=== PATIENT | male | born 1985 | race Caucasian/White ===

== ENCOUNTER 2023-02-27 14:55 | Emergency (ER) | payer SELFPAY ==
[2023-02-27 15:02] VITALS: BP 131/84; PULSE 72; RESP 16; TEMP 37.1; O2SAT 100; BMI 29.8
--- NOTE | 2023-02-27 15:10 | XR_ITS ---
The [address] [address] Patient Name: JACKI ROCHA MRN: [id number] date: 1985 Sex: M Assigned Patient Location: ER Current Patient Location: ER Accession/Order Number: [id number] Exam Date: 02/27/2023 15:15 Report Date: 02/27/2023 15:39 At the request of: GUANACO TRUJILLO Procedure: XR lumbar spine 2-3V EXAM: XR lumbar spine 2-3V HISTORY: fall COMPARISON: None TECHNIQUE: AP and lateral views of the lumbar spine were obtained. FINDINGS: Vertebral body heights are grossly well-maintained. Mild disc space narrowing at L5-S1. Minimal anterior spurring in the lower thoracic levels as well as at L3-4 and L4-5. Facet joints appear grossly unremarkable. No obvious spondylolysis or spondylolisthesis. No definite acute fracture or dislocation. Slight convexity of the thoracolumbar junction to the right. XR/XR lumbar spine 2-3V IMPRESSION: Lumbar spine study fails to demonstrate definite acute fracture or dislocation. Follow-up as needed. Electronically authenticated by: DIANA SCHNEIDER Date: 02/27/2023 15:39
[2023-02-27] MEDS: KETOROLAC TROMETHAMINE 60 MG/2 ML VIAL IM (15:23)
--- NOTE | 2023-02-27 15:23 | ED.BACK1 ---
Documented by User: Cori Dias 02/27/23 15:51 HPI - Back Pain/Injury General Chief Complaint: Back Pain/Injury Stated Complaint: BACK PAIN Time Seen by Provider: 02/27/23 15:10 Source: patient Mode of arrival: walk-in Limitations: no limitations History of Present Illness HPI Narrative: 37-year-old male presents her with chief complaint of right lower lumbar pain. Patient reports slipping and falling while moving a with burning stove last evening. As the day progresses today he has increased lower lumbar pain. Some difficulty standing straight. He states she has thrown his back in the past. He is able to stand and ambulate. Denies any numbness, tingling, loss of bowel or bladder function. Related Data Home Medications Medication Instructions Recorded Confirmed No Known Home Medications 02/27/23 02/27/23 Previous Rx's Medication Instructions Recorded ibuprofen 800 mg tablet 800 mg PO Q8H PRN pain #20 tabs 02/27/23 methocarbamol 500 mg tablet 500 mg PO Q8H PRN muscle spsm #14 02/27/23 tabs prednisone 50 mg tablet 50 mg PO DAILY 5 days #5 tabs 02/27/23 Allergies Allergy/AdvReac Type Severity Reaction Status Date / Time No Known Drug Allergies Allergy Verified 02/27/23 15:08 Review of Systems ROS Narrative All Systems are negative except as noted/marked. PFSH PFSH Social History Smoking status: Current every day smoker Exam Narrative Exam Narrative: Nurses note and vital signs reviewed and patient is not hypoxic. General: The patient appears well and in no apparent distress. Patient is resting comfortably on cart. Skin: Warm, dry, no pallor noted. There is no rash noted. Head: Normocephalic, atraumatic Eye: Normal conjunctiva, no drainage, EOMI. PERRL Back: Right lower lumbar tenderness L4-L5 lateral T-spine, no masses palpated, no step-offs, No bruising or ecchymosis,no CVA tenderness bilaterally to percussion. GI: Normal bowel sounds, no tenderness to palpation, no masses appreciated. No rebound, guarding, or rigidity noted. Musculoskeletal: The patient has no evidence of calf tenderness, no pitting edema, symmetrical pulses noted bilaterally Neurological: A&O x4, normal speech Psychiatric: Cooperative Constitutional Vital Signs, click to edit/add: Last Vital Signs Temp 98.7 F 02/27/23 15:02 Pulse 72 02/27/23 15:02 Resp 16 02/27/23 15:02 BP 131/84 02/27/23 15:02 Pulse Ox 100 02/27/23 15:02 O2 Del Method Room Air 02/27/23 15:02 Course Vital Signs Vital signs: Vital Signs Temperature 98.7 F 02/27/23 15:02 Pulse Rate 72 02/27/23 15:02 Respiratory Rate 16 02/27/23 15:02 Blood Pressure 131/84 02/27/23 15:02 Pulse Oximetry 100 02/27/23 15:02 Oxygen Delivery Method Room Air 02/27/23 15:02 Temperature 98.7 F 02/27/23 15:02 Pulse Rate 72 02/27/23 15:02 Respiratory Rate 16 02/27/23 15:02 Blood Pressure 131/84 02/27/23 15:02 Pulse Oximetry 100 02/27/23 15:02 Oxygen Delivery Method Room Air 02/27/23 15:02 MDM - Back Pain/Injury MDM Narrative Medical decision making narrative: 37-year-old male presents here with a chief complaint of right lower lumbar pain. He has pain through L3-L4-L5 region. He states he slipped last night while moving a wood-burning stove has had progressive increase of pain today. X-rays performed show no acute deformity or dislocations. Patient medicated here with Toradol and muscle relaxant. He'll be discharged home with prescription for anti-inflammatory, steroid and muscle relaxant. He will follow-up primary care physician. Patient also requested a work note given a work note for the rest of the day today. Differential Diagnosis Differential diagnosis: Likely lumbar radiculopathy, sciatica and strain of lumbar region Medical Records Attestation: I reviewed the patient's medical records. Medical records narrative: EXAM: XR lumbar spine 2-3V HISTORY: fall COMPARISON: None TECHNIQUE: AP and lateral views of the lumbar spine were obtained. FINDINGS: Vertebral body heights are grossly well-maintained. Mild disc space narrowing at L5-S1. Minimal anterior spurring in the lower thoracic levels as well as at L3-4 and L4-5. Facet joints appear grossly unremarkable. No obvious spondylolysis or spondylolisthesis. No definite acute fracture or dislocation. Slight convexity of the thoracolumbar junction to the right. IMPRESSION: Lumbar spine study fails to demonstrate definite acute fracture or dislocation. Follow-up as needed. Electronically authenticated by: DIANA SCHNEIDER Date: 02/27/2023 15:39 Imaging Data lumbar: Radiologist's impression: ITS Impressions Lumbar Spine X-Ray 02/27/23 15:10 IMPRESSION: Lumbar spine study fails to demonstrate definite acute fracture or dislocation. Follow-up as needed. Electronically authenticated by: DIANA SCHNEIDER Date: 02/27/2023 15:39 Discharge Plan Discharge Chief Complaint: Back Pain/Injury Clinical Impression: Strain of lumbar region Patient Disposition: Home, Self-Care Condition: Good Mode of Transportation: Private Vehicle Prescriptions / Home Meds: New ibuprofen 800 mg tablet 800 mg PO Q8H PRN (Reason: pain) Qty: 20 0RF prednisone 50 mg tablet 50 mg PO DAILY 5 Days Qty: 5 0RF methocarbamol 500 mg tablet 500 mg PO Q8H PRN (Reason: muscle spsm) Qty: 14 0RF No Action No Known Home Medications Instructions: Muscle Strain (DC), Back Pain (ED), P.R.I.C.E. Treatment (ED) Stand Alone Forms: Portal Instructions Referrals: Physician,Non-Staff, [Primary Care Provider] - 1 week Discharge Date/Time: 02/27/23 16:10 Documented by User: Jason Delgado MD 02/27/23 18:51 HPI - Back Pain/Injury General Chief Complaint: Back Pain/Injury Stated Complaint: BACK PAIN Time Seen by Provider: 02/27/23 15:10 Related Data Home Medications Medication Instructions Recorded Confirmed No Known Home Medications 02/27/23 02/27/23 Previous Rx's Medication Instructions Recorded ibuprofen 800 mg tablet 800 mg PO Q8H PRN pain #20 tabs 02/27/23 methocarbamol 500 mg tablet 500 mg PO Q8H PRN muscle spsm #14 02/27/23 tabs prednisone 50 mg tablet 50 mg PO DAILY 5 days #5 tabs 02/27/23 Allergies Allergy/AdvReac Type Severity Reaction Status Date / Time No Known Drug Allergies Allergy Verified 02/27/23 15:08 PFSH PFS Social History Smoking status: Current every day smoker Exam Constitutional Vital Signs, click to edit/add: Last Vital Signs Temp 98.7 F 02/27/23 15:02 Pulse 72 02/27/23 15:02 Resp 16 02/27/23 15:02 BP 131/84 02/27/23 15:02 Pulse Ox 100 02/27/23 15:02 O2 Del Method Room Air 02/27/23 15:02 Course Vital Signs Vital signs: Vital Signs Temperature 98.7 F 02/27/23 15:02 Pulse Rate 72 02/27/23 15:02 Respiratory Rate 16 02/27/23 15:02 Blood Pressure 131/84 02/27/23 15:02 Pulse Oximetry 100 02/27/23 15:02 Oxygen Delivery Method Room Air 02/27/23 15:02 Temperature 98.7 F 02/27/23 15:02 Pulse Rate 72 02/27/23 15:02 Respiratory Rate 16 02/27/23 15:02 Blood Pressure 131/84 02/27/23 15:02 Pulse Oximetry 100 02/27/23 15:02 Oxygen Delivery Method Room Air 02/27/23 15:02 MDM - Back Pain/Injury MDM Narrative Medical decision making narrative: 37-year-old male presents here with a chief complaint of right lower lumbar pain. He has pain through L3-L4-L5 region. He states he slipped last night while moving a wood-burning stove has had progressive increase of pain today. X-rays performed show no acute deformity or dislocations. Patient medicated here with Toradol and muscle relaxant. He'll be discharged home with prescription for anti-inflammatory, steroid and muscle relaxant. He will follow-up primary care physician. Patient also requested a work note given a work note for the rest of the day today. I, Dr Delgado, have reviewed the above progress note and course of action in the ER; agree with the above. I have gone over history and physical, and discussed disposition and treatment plan with the patient. Imaging Data lumbar: Radiologist's impression: ITS Impressions Lumbar Spine X-Ray 02/27/23 15:10 IMPRESSION: Lumbar spine study fails to demonstrate definite acute fracture or dislocation. Follow-up as needed. Electronically authenticated by: DIANA SCHNEIDER Date: 02/27/2023 15:39 Discharge Plan Discharge Chief Complaint: Back Pain/Injury Clinical Impression: Strain of lumbar region Patient Disposition: Home, Self-Care Condition: Good Mode of Transportation: Private Vehicle Prescriptions / Home Meds: New ibuprofen 800 mg tablet 800 mg PO Q8H PRN (Reason: pain) Qty: 20 0RF prednisone 50 mg tablet 50 mg PO DAILY 5 Days Qty: 5 0RF methocarbamol 500 mg tablet 500 mg PO Q8H PRN (Reason: muscle spsm) Qty: 14 0RF No Action No Known Home Medications Instructions: Muscle Strain (DC), Back Pain (ED), P.R.I.C.E. Treatment (ED) Stand Alone Forms: Portal Instructions Referrals: Physician,Non-Staff, MD [Primary Care Provider] - 1 week Discharge Date/Time: 02/27/23 16:10
[2023-02-27] MEDS: ORPHENADRINE 60 MG/ 2 ML VIAL IM (15:24)
== END 2023-02-27 16:10 | disposition home or self-care (01) ==
PROVIDERS: Emergency Provider Emergency Medicine
DX: S39.012A Strain of muscle, fascia and tendon of lower back, initial encounter (principal); F17.210 Nicotine dependence, cigarettes, uncomplicated; W01.0XXA Fall on same level from slipping, tripping and stumbling without subsequent striking against object, initial encounter
CPT/HCPCS: 72100; 96372; 99284; J1885; J2360

== ENCOUNTER 2023-05-07 08:45 | Emergency (ER) | payer SELFPAY ==
[2023-05-07 08:45] VITALS: BP 144/92; PULSE 100; RESP 18; TEMP 36.9; O2SAT 98; BMI 29.8
--- NOTE | 2023-05-07 08:59 | XR_ITS ---
The [address] [address] Patient Name: JACKI ROCHA MRN: [id number] date: 1985 Sex: M Assigned Patient Location: ER Current Patient Location: ER Accession/Order Number: [id number] Exam Date: 05/07/2023 09:28 Report Date: 05/07/2023 10:06 At the request of: KAYCE GRAF Procedure: XR lumbar spine 2-3V EXAM: XR lumbar spine 2-3V HISTORY: Right-sided lower back pain; technologist notes state back pain after moving a heavy object. COMPARISON: Lumbar spine series dated 02/27/2023. TECHNIQUE: AP, lateral and coned-down lateral views of the lumbar spine performed. FINDINGS: The bony alignment and mineralization are normal. The vertebral body heights are normal. There is no fracture. There is a small endplate spur at L3-4 with preservation of the disc space height. The disc spaces and facet joints are otherwise unremarkable. The pedicles are intact. The sacrum and bilateral sacral joints are unremarkable. XR/XR lumbar spine 2-3V IMPRESSION: There is no acute process. Electronically authenticated by: GERMÁN WELLS Date: 05/07/2023 10:06
--- OUTSIDE RECORDS SUMMARY | 2023-05-07 09:03 | XMS_ITS | CCD ---
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 Name Role Phone MARCO A LOPEZ Admitting Unavailable MARCO A LOPEZ Attending Unavailable MISC, DOCTOR Primary Care Unavailable CARLOS DIAS V Consulting Unavailable GIFTY AVILA Consulting Unavailable MISC, DOCTOR Primary Care Unavailable STRUS, LIZBETH Admitting Unavailable STRUS, LIZBETH Attending Unavailable GREMADONNA, GIFTY Consulting Unavailable Problems Active Problems Problem Classification Problem Date Documented Da te Episodic/Chronic External cause codes: Natural/environment (1 source) Other and unspecified overexertion or strenuous movements or postures, initial encounter; Translations: [OTH AND UNS OVREXRT/STRN MVMT/POS INT] Onset: 12-04-2017 Residual codes; unclassified (4 sources) Procedure and treatment not carried out due to patient leaving prior to being seen by health care provider; Translations: [PROC AND TX NOT CARRIED OUT PT LEAVE] Onset: 03-01-2018 Episodic Substance-related disorders (1 source) Nicotine dependence, cigarettes, uncomplicated; Translations: [NICOTINE DEPEND CIGARETTES UNCOMP] Onset: 12-04-2017 Chronic Past or Other Problems Problem Classification Problem Date Documented Da te Episodic/Chronic Joint disorders and dislocations; trauma-related (1 source) Anterior dislocation of right humerus, initial encounter; Translations: [ANT DISLOCATION RT HUMERUS INITIAL] Onset: 12-04-2017 Episodic Other non-traumatic joint disorders (3 sources) Pain in right shoulder; Translations: [PAIN IN RIGHT SHOULDER] Onset: 12-02-2017 Episodic Results Test Name Value Interpretation Reference Range Facil ity Shelter Documentson 05-24-2021 Shelter Documents [id number]# 1.00CD:127 Normal Ly [facility] Coding Summary.on 07-24-2020 Coding Summary. CD:[id number] G h0bWw+PGhlYWQ+OV0XFDY qX09niENnfS5RW4nAOZ9H WIJBUCYUAR2WOG3nhZD7H OaaZ3TwjjLc RnwymFNzQN81KBt6HPQ5z SznDKdwkE4lkAHlQ4s2Xr OhYD22xV90ZWqrURPjObE 3LjZpbjsgbWFy L2umIiCguUOtHms+PHRhY mxlIHdpZHRoPScxMDAlJy EsvTtuVU8yLy9gEYErZDI vbGxhcHNlOiBj f9ejJACfCTjaEI9smVspC 5IthBW5BYSnn9s2Vg56uV I+KQRqMFI8xWoaDKxaa41 8UfPky3xsRMI3 bGQxGVkyYSH3N68uv5V4U WOzODTlSFF1gCB6tN1brR jofxfsC9XhbNSfNqS1GNU 7tASmzV2juQak uvqxqX6jVpp+M73RTP2MZ IYZYG4AOze5U7CkYacjzK I+DV44KUDtAV31vMFuqDR lt1octGx2IhRf NYXkVXN4iEhpCMidk4QqL USiL21isVHrz2N7CGGdpV osqDJxRrLbiPL5qM8eRVv geunfp3isuytc Itzde0jumj19sL32K18jD PynDRMbCLF0LDVzGVZmyY nxrw1myQ7lXt2+UQcma7b lf7btmBd1PyLh UHLoxuLcpBecKAT8c8UqT c24F4XnzNiqq5HdLxz3yl 23jUFxw5S6qPF7BZppRET giQ5gTHrdWiT7 LPZuEjWhpS64zFEaECkgM e9zgVvthRamZO2jKHKhff awTVOivD3cEGJwvSZdoLq eAZ4jACApzmzy c272TcOtTEL7AKOzbEAuG 5CjaJ9wHvYcUIMvIFYiE1 QcjGGjHWwsQ639LZroRlV 5VEUakxWtR6Zl SASiqWiuVbX0r1W6Ze0Tq 2PycwvhWXF1LZumNJQ8Ik Z4HrYqFjC6J9IwSnr4RGS fxTdrUX7bW2Vt QGKlahgjsuzlkXH2KUXuX EOszC41dKNqZJheEk8qc8 E0b502RIAvPGLhqC57Id3 udDogMTBwdCBU oQ3joqtor8qzzotmDrUhZ INoGGx6NSj8JKRrnClsCr CoQYY4ZeG0YRQ3mUPbyI8 veAvmtjkmlO0s Oyc+X29jzC1iABH6CPW7v ggkVJQwflEeQB64KO67Y2 RyPjwvdGFibGU+PGRpdiB zwGooJJ3kBuSb l5oim9MtVIevJ5MtHOGcB JwxQdd5IKZoGWG3lVP7tB 6bTYNpUHauc7K9xNI6E1M wtmVcvc3pp9us GLPfDBsfF87eyIAyf7G1P FZadSS1EQTyzMqdYdAqsR 93Oyc+ORMvzAris2HkJqz pz2dtw7hflMe6 XtYlIJXpqmUafIugPOU5w 1OpFi71Q01cKXirAJZhSU WwFXEkOAVuuAukan5okN2 wIi8+PGNvbCB3 lMY7hP2pALNoTcJ4TBfeA 259SeIjjRKwJcmrn4jea8 enuIo3AyOtWNEdiaWmaDs kXCF3z1SaUw56 T82jAGbfOLCyYPUjGHAaK YKysGqcsq0noH8nVn6+PC 3ih1toiq93cZ38nPL+PHR yXSC4uJmxQZpq JWKakZ4rTRvbXhE3TDCdQ iZyiX94lLSjVLauHf1ljX dulAlcXG7aCOKohiiku31 2NbQyn1iwSDMa xQQsPMmwGCW2G14jt3Z8P OYeADHdIDC9tWE2hQ2alX lnbjogbGVmdDsgdmVydGl yVQbpYFwuO314 IHRvcDsnPlBhdGllbnQgT tDmXTw1R7BvQsy5LKZlzO bkOG5usJFeHRtcHm2mqGb jjZtgCW0hIDEk acowf611MwSix0bsFAQyx OFuTElfXKD7T70ql9P8NY OlYADrPVL9lPO0pR5byBj nbjogbGVmdDsg thLfrOxfNJdwUXweP324E HRvcDsnPkJpcnRoIERhdG Y2UH70CE07tDBmp5F1dHQ 0T2MyQBTtlhrs tdqydCP0SPTbEUAibU85C p7apBszBa9mBWQsVKG6KK ZfcXDrI0KgbL1kJaFsDYF iQZZmT1IecNLn YPpqF845UNklEwP2OWVpn yLpN2FwQUXroZwmVlA9m1 M5Mx9WM2O7JP92NC52aKY aa0S1kSS1C7Mf WUZqjccsjfbhlMG1BBAlR SZpcG63Pg1qjXpuWp1rDM CxYAF7UXYptJUlF0CgyI8 yOiAjMDAwMDAw B9TedPSyPYztV845XUqjQ mD3NSZwcfPeO2SiFEZnlK laDjB7k7S9Vo8FZJj7IU5 7RB86gELmt0V8 fPQ2A1MpIUMxbmkiqszat VM8IPHrHPGdyE59Yo2uhX egCv6kOOMdYJQ0EYTdpOE sS7SvcL2yImNy JXXgKIRcK6EqgCGbHDuzM 208KCybLfW3WZQwnlIwE4 NiABHsfFxwAzT6d2M7Vg1 NWAVvEV87KOT0 gRH9UW50XH09S7ToUdqvp GFibGU+PHRhYmxlIHdpZH RoPScxMDAlJyBzdHlsZT0 lYb0bWTTfETMq wXaazPRgEqVsl1qsXGJkF AfrJO9yoRaoB2FnsAU6MX Pba0s0My66C00zL2SwiIM +IXLfgYP4jZC6 jO3vKmMsWpB6NVnbK316T lBquPFgKwrco4etb3cbbV s6IhJ8ZWLqhqXuhKdfECF 8h3ZpNx18U82d IHdpZHRoPSIxNSUiIHZhb Mmvca7duL5tSb7+PGNvbC G3pNZ2mH3eNxVjQaK0BYk qD879RvYnqFQs Iyzkl9vfd0suhUz3SuNcH UYrxyTqtKsjNAZ2g2ZjEh 01J3EhxUnmv3YpIga6kv9 2lORqx1Z1xUB9 B5EjNETbekgyxTXpxBxcU N4sMYUomhzkEXAgvT0oNC RbW7w6EgHcRfR2NQowF3H wkqQ2IZCuuJTt KAqhOCN1T77bg9G8BBGgI MSuDRZ4mHO4xV2xyUzpuv ogbGVmdDsgdmVydGljYWw wIYqpE656WBKr zXiiTURqkJ6yAZVlpCXcq IdwRN4uOSCbpvwgJtFCQn FXLctxPN2UOVIDKEphKka vdGQ+PHRkIHN0 vPbpEUisFVXnqT8rTKKnR 5n8UuBqYdG1TWkhQ3FxRU LsdptfAs34hU9aOvSsHwQ 8SUkrF9PlieY5 RJYruIAtQSfeZKH4W63yl 1M4EJTqKZSaWSW2cMZ2gG 1hbGlnbjogbGVmdDsgdmV ydGljYWwtYWxp V385LZJddKihZwTsBqJuP nT9BIi5Q4JyQcc1HOAygT wnFA7doNRbMNcaUl8ykTm noJomQA2aPOCz ofqcJYRerT6vGSRiuBWfc UqbNM0fKLRavdptw681Zf GyKCV1NYTozINzI1DadZ5 yOiAjMDAwMDAw A6MjdHLtCAlxF728IMecI iF9QCDxhsDfX8DlQNBapZ ysCcN1u7T4Nc8cQHXDOOS yczwvdGQ+PHRk NIP4aBroTWtlWMVbdO6iY WXyL2y7ZyScRuM2ZUvwL8 EuROQffavjZi98xP7qBuP qHjZ4VTsqX6Qt mwX8JCLpxCWxUKbhKQC8Z 35lf6W6AYMnNHRxYIJ0wA W1hD3qnIpnxnsawHZmoMi gdmVydGljYWwt JWpjW456MKOaoNzaWp5mz CW8E2XgYpr8IZCcvQsfSC 9prKVsBNihTq6rmVuygUx jWK2xDBAshrhe QQDpvZ5bGVOlmMJpsPuvE I8uTYZvkyalc128BvAjMT O4ETZuuVNpR9TrgY2xFwB fMZAvIHSdH9Oy gKFsTHlgR192GWeoUhG9L RCjtdKzP0TnUCWryInbNr B8n0Y2Hq6ZuLMhK8NsF2c 3U9OjUdcmmQA+ XA62QERdDD29aHTyfOMko 1udmTe8JzNvXGSiSBU9jK cbJNukf1LvXGIsK37tuIR so3Y6HPGdzFws mMUiBaEhjNK0hD9zYXrqt qthc0ebprkxHpgta8zfqi 20wF41Z59fRBxeLAIsJHU zMCUiIHZhbGln wg2azY7hYz1+UPOqeFZ5z RA6dI4vKyEaUxH4JRgpU1 53FtErrWKmXmfif9rwh9w gcNg4KuUvATGy wkIvmIrkWQZ8y2CcFz17A 29sIHdpZHRoPSIyMCUiIH VjuKlxxd7ekC0kRq0+PC9 qr4rwop00qQ11 dHI+FHUrWLG2hXckPMstS CRlhS6xKVdsNuZ7RJTcPm OxiQ65nJNrLCxjVs9pvGf rrQgsGP3kOEFz vpodd014UaFtc4ppMWVsw CLvQKcfGJQ6C80fc2L9ZY EbKCGbNXN2wLP2fY1imAj nbjogbGVmdDsg mjMnhNgaZQvbMAezN376K JRzgYyxYaItwPWaV5xvvj ZKAM3zRruxeMV+PHRkIHN 0eWxlPSdwYWRk gR3eZTSzZ9f5ZlCbQgR2D RfpP5LlutA5GHNjvWAyRT RdaXFGdR0cqekyq3gpkll gIzAwMDAwMDt0 MVc0QMIqxUyhKvXfRQF2A lS5DEY8mFAwvH0mrDlgqd zcvO1gTrl+RklOOjwvdGQ +CYZfJBN7jEim JVpfIUOusV6gNHBuU0g4W gXqTyC9UZnsI8GxglC5GR BuhXQyHYPcaUFQaU6aeav hk7xkkjrzEvPq WDFqPNj6JOq9MAIyqAhsM nGrVLS9JbR3NLB9pIIymH 9pvMotfbybkH1fVyo+TVJ OOjwvdGQ+PHRk TSD9sPrtJUshRRWxfN0oR NYxS5q7TuWwLvZ2CAumB2 SvtuC2HUFnuBSrGILvaXO EyC9dyefzq0un dqveTdPdPQWwJQe0KYj6C YGfvLhlMsMkCPO6VrX4XE Z7rEJrzS3teKnbdgszqH7 wOyc+ZVW5ZAG4 FH83XO35E2RqTvzuuQUxa +PHRhYmxlIHdpZHRoPS rjUBSkDvFgjMcjGR5rNb8 yZGVyLWNvbGxh cHNl (more content not included)... Normal [facility] Consent for Treatmenton - Consent for Treatment [id number]#1 .00CD:[address] [facility] Discharge Instructionson Discharge Instructions [id number]# 1.00CD:[address] [facility] ED Clinical Summaryon 2020 ED Clinical Summary [place] [id number] ED Clinical Summary Person Information Name: JACKI ROCHA Kaylie/[facility] Age: 35 Years : 1985 Sex: Male Language: Irish PCP: Kelin Patel MD Marital Status: Single Phone: [phone] Visit Id: Visit Reason: Ankle injury - Minor; right foot/ankle pain Speciality: Acuity: 4 Enc Type: Emergency Med Service: Emergency Arrival: 07/16/2020 10:38:10 Discharge: 07/16/2020 11:58:30 LOS: 000 01:20 Checkin: 07/16/2020 10:38:10 Checkout: 07/16/2020 11:58:30 Dispo Type: Home (Routine DC) EVENTS: Event Name Event Status Request Date/Time Start Date/Time Complete Date/Time Arrive Complete 07/16/2020 10:38:10 07/16/2020 10:38:10 07/16/2020 10:38:10 Document Home Meds Request 07/16/2020 10:38:10 Triage Complete 07/16/2020 10:38:10 07/16/2020 10:50:44 07/16/2020 10:50:44 Bed Assign Complete 07/16/2020 10:45:05 07/16/2020 10:45:05 07/16/2020 10:45:05 Dr Exam Complete 07/16/2020 10:45:05 07/16/2020 10:51:04 07/16/2020 10:51:04 RN Exam Complete 07/16/2020 10:45:05 07/16/2020 10:52:37 07/16/2020 10:52:37 Registration Complete 07/16/2020 10:51:04 07/16/2020 11:08:18 07/16/2020 11:08:18 Dr Exam Complete 07/16/2020 10:54:22 07/16/2020 10:54:22 07/16/2020 10:54:22 X-Ray Complete 07/16/2020 10:56:17 07/16/2020 11:13:58 07/16/2020 11:30:49 Reg Complete Request 07/16/2020 11:08:18 Wet Read Complete 07/16/2020 11:30:49 07/16/2020 11:32:25 07/16/2020 11:32:25 Patient Care Request 07/16/2020 11:35:53 Meds Admin Complete 07/16/2020 11:35:53 07/16/2020 11:51:06 Discharge Complete 07/16/2020 11:36:37 07/16/2020 11:58:51 07/16/2020 11:58:51 Transfer Complete 07/16/2020 11:58:51 07/16/2020 11:58:51 07/16/2020 11:58:51 ADDRESS: [address] [place] [phone] PHYS DOC NOTES: MEDICAL INFORMATION: Prescriptions Given: New Medications [id number], [address], [place] [id number], [phone] naproxen (Naprosyn 500 mg Tab) 1 Tablets By Mouth 2 times a day as needed for pain. Refills: 0. Medications to Continue with No Changes Other Medications multivitamin with fluoride 1 tab By Mouth every day. omega-3 polyunsaturated fatty acids (Fish Oil) 1,000 Milligram By Mouth every day. PATIENT EDUCATION INFORMATION: Instructions: Ankle Sprain Follow up: With: Address: When: Kelin Patel [address] [place] [address] Business (1) In 3 days 07/19/2020 DIAGNOSIS: Ankle sprain [facility] ED Note-Physicianon 07-17-19 ED Note-Physician Basic Information Time Seen: Amanda PENAAydin 07/16/2020 10:51 Chief Complaint Pt was mowing lawn and had miss step. Pt rolled Rt ankle History of Present Illness 35-year-old male comes into the ED for evaluation of a right ankle injury. A couple of days ago the patient was mowing the grass when he tripped, twisted the right ankle. Presents with pain to the right ankle and foot. He is able to bear weight but it does worsen his pain. No other area of injury or concern. No prior treatments. No acute weakness or paresthesias. Review of Systems A 10 point review of systems is negative except as noted above. Medical and Surgical History: Reviewed and noted Social history: Lives at home Tobacco: Denies Physical Exam Vitals & Measurements T: 37.1 ?C (Oral) HR: 65(Peripheral) RR: 16 BP: 138/88 SpO2: 100% WT: 102.0 kg WT: 102 kg Nurses notes and vital signs reviewed and patient is not hypoxic. General: The patient appears well, resting comfortably. Skin: Warm, dry. Head: Atraumatic. Neck: No JVD. Eye: Normal conjunctiva. Ears, Nose, Mouth, and Throat: Moist mucous membranes. Cardiovascular: Strong distal pulses. Chest wall: Respiratory: Respirations are nonlabored. Back: Normal range of motion. Musculoskeletal: Tenderness swelling of the lateral aspect of the right ankle. There is ecchymosis extending to the dorsal distal foot. No bony instability. No medial ankle tenderness. Strong pedal pulses. No calf tenderness. No tenderness to the proximal tibia/fibula Gastrointestinal: Urological: Neurological: Awake and alert. No focal deficits. Follows commands. Psychiatric: Cooperative. Medical Decision Making X-rays show no evidence of fracture or dislocation. The diagnostic limitation of x-rays were discussed. It was explained that follow-up imaging may be necessary, and PCP follow-up was given. Patient is prescribed anti-inflammatories. Patient was encouraged to return to the ED if symptoms worsen or change. Splinting procedure Patient was placed in Gildardo wrap and Air-Stirrup splint by nursing staff. Remains neurovascular intact. Assessment/Plan Ankle sprain (S93.409A: Sprain of unspecified ligament of unspecified ankle, initial encounter) Orders: ibuprofen, 600 mg = 1 tab(s), Tab, Oral, Once, Stop date 07/16/20 11:35:00 EDT, STAT, Start date 07/16/20 11:35:00 EDT, 07/16/20 11:35:00 EDT naproxen, 500 mg = 1 tab(s), Oral, BID, PRN for pain, # 20 tab(s), Refills(s) 0, Pharmacy: [id number], 182, cm, 01/16/20 14:43:00 EST, Height/Length Dosing, 102, kg, 07/16/20 10:50:00 EDT, Weight Dosing Gildardo Wrap Air Cast XR Ankle 3+ Views Right XR Foot 3+ Views Right Disposition Plan Patient Discharge Condition Disposition: Discharged home Condition: Improved and stable Counseled: Patient and/or family were counseled to workup, results, treatment plan and follow-up recommendations Discharge Prescription List Prescriptions Naprosyn 500 mg Tab, 500 mg= 1 tab(s), Oral, BID, PRN Follow-up With When Contact Information Kelin Patel In 3 days 07/19/[address] [place] [address]- Business (1) Additional Instructions: Patient Education Ankle Sprain Attestation Patient seen and evaluated by the physician primary teaching assistant. Attending physician was present in the emergency department and supervised care. This report was transcribed using voice recognition software. Every effort was made to ensure accuracy, however, inadvertently computerized reheat furnace operator mistakes may be present. Appropriate healthcare PPE was used in evaluating this patient. The patient was placed in a mask. The healthcare provider was wearing mask, gloves, googles and utilizing proper hand hygiene. All equipment was properly cleansed. Problem List/Past Medical History Ongoing Smoker Historical No qualifying data Medications Inpatient ibuprofen 600 mg Tab, 600 mg= 1 tab(s), Oral, Once Home Fish Oil, 1000 mg, Oral, Daily multivitamin with fluoride, 1 tab, Oral, Daily Naprosyn 500 mg Tab, 500 mg= 1 tab(s), Oral, BID, PRN Allergies No Known Allergies Social History Alcohol - Denies Alcohol Use, 03/01/2018 Substance Abuse - Denies Substance Abuse, 03/01/2018 Tobacco - High Risk, 01/09/2016 Smokeless tobacco user within last 30 days Smokeless Tobacco Use:., 01/16/2020 10 or more cigarettes (1/2 pack or more)/day in last 30 days Tobacco Use:. Cigarettes, 03/01/2018 Current Every Day Smoker, Cigarettes, 01/09/2016 Family History Family history is negative Lab Results No qualifying data available. Diagnostic Results XR Ankle 3+ Views Right * Preliminary * 07/16/20 11:36:51 NEGATIVE: No fracture, dislocation or other acute abnormality Read By: Aydin Patel PA-C XR Foot 3+ Views Right * Preliminary * 07/16/20 11:37:03 NEGATIVE: No fracture, dislocation or other acute abnormality Read By: Amanda ZHU (more content not included)... Normal [facility] Comment on above: Result Comment: Elec tronically Signed By: Aydin Patel PA-C\.br\Date and Time Signed: 07/16/20 11:50 EDT\.br\Electronically Co-Signed By: Koko Dong DO\.br\Date and Time Co-Signed: 07/16/20 18:56 EDT ED Patient Education Noteon 07-16-2020 ED Patient Education Note Orthopedics Ankle Sprain An ankle sprain is a stretch or tear in a ligament in the ankle. Ligaments are tissues that connect bones to each other. The two most common types of ankle sprains are: ? Inversion sprain. This happens when the foot turns inward and the ankle rolls outward. It affects the ligament on the outside of the foot (lateral ligament). ? Eversion sprain. This happens when the foot turns outward and the ankle rolls inward. It affects the ligament on the inner side of the foot (medial ligament). What are the causes? This condition is often caused by accidentally rolling or twisting the ankle. What increases the risk? You are more likely to develop this condition if you play sports. What are the signs or symptoms? Symptoms of this condition include: ? Pain in your ankle. ? Swelling. ? Bruising. This may develop right after you sprain your ankle or 1?2 days later. ? Trouble standing or walking, especially when you turn or change directions. How is this diagnosed? This condition is diagnosed with: ? A physical exam. During the exam, your health care provider will press on certain parts of your foot and ankle and try to move them in certain ways. ? X-ray imaging. These may be taken to see how severe the sprain is and to check for broken bones. How is this treated? This condition may be treated with: ? A brace or splint. This is used to keep the ankle from moving until it heals. ? An elastic bandage. This is used to support the ankle. ? Crutches. ? Pain medicine. ? Surgery. This may be needed if the sprain is severe. ? Physical therapy. This may help to improve the range of motion in the ankle. Follow these instructions at home: If you have a brace or a splint: ? Wear the brace or splint as told by your health care provider. Remove it only as told by your health care provider. ? Loosen the brace or splint if your toes tingle, become numb, or turn cold and blue. ? Keep the brace or splint clean. ? If the brace or splint is not waterproof: ? Do not let it get wet. ? Cover it with a watertight covering when you take a bath or a shower. If you have an elastic bandage (dressing): ? Remove it to shower or bathe. ? Try not to move your ankle much, but wiggle your toes from time to time. This helps to prevent swelling. ? Adjust the dressing to make it more comfortable if it feels too tight. ? Loosen the dressing if you have numbness or tingling in your foot, or if your foot becomes cold and blue. Managing pain, stiffness, and swelling ? Take bzdv-pzn-eklcxra and prescription medicines only as told by your health care provider. ? For 2?3 days, keep your ankle raised (elevated) above the level of your heart as much as possible. ? If directed, put ice on the injured area: ? If you have a removable brace or splint, remove it as told by your health care provider. ? Put ice in a plastic bag. ? Place a towel between your skin and the bag. ? Leave the ice on for 20 minutes, 2?3 times a day. General instructions ? Rest your ankle. ? Do not use the injured limb to support your body weight until your health care provider says that you can. Use crutches as told by your health care provider. ? Do not use any products that contain nicotine or tobacco, such as cigarettes, e-cigarettes, and chewing tobacco. If you need help quitting, ask your health care provider. ? Keep all follow-up visits as told by your health care provider. This is important. Contact a health care provider if: ? You have rapidly increasing bruising or swelling. ? Your pain is not relieved with medicine. Get help right away if: ? Your foot or toes become numb or blue. ? You have severe pain that gets worse. Summary ? An ankle sprain is a stretch or tear in a ligament in the ankle. Ligaments are tissues that connect bones to each other. ? This condition is often caused by accidentally rolling or twisting the ankle. ? Symptoms include pain, swelling, bruising, and trouble walking. ? To relieve pain and swelling, put ice on the affected ankle, raise your ankle above the level of your heart, and use an elastic bandage. ? Keep all follow-up visits as told by your health care provider. This is important. This information is not intended to replace advice given to you by your health care provider. Make sure you discuss any questions you have with your health care provider. Document Released: 01/26/2006 Document Revised: 10/18/2018 Document Reviewed: 06/22/2018 Elsevier Patient Education ? [address] [facility] [facility] ED Patient Summaryon 021 ED Patient Summary [address] [address] Patient Discharge Instructions Person Information Name: JACKI ROCHA Age: 35 Years Arrival Date: 07/16/2020 10:38:10 Discharge Diagnosis: Ankle sprain Primary Care Physician: Kelin Patel MD Provider Information Primary Provider: Koko Dong DO Advanced Medical Physics Teacher:Aydin Patel PA-C The exam and treatment you received in the Emergency Department were for an urgent problem and are not intended as complete care. It is important that you follow up with a doctor, nurse practitioner, or physician?s primary teaching assistant for ongoing care. If your symptoms become worse or you do not improve as expected and you are unable to reach your usual health care provider, you should return to the Emergency Department. We are available 24 hours a day. JACKI ROCHA has been given the following list of patient education materials, prescriptions and follow-up instructions: Follow-up Instructions: With: Address: When: Kelin [place] [address] Business (1) In 3 days 07/19/2020 In the event that this physician does not participate in your insurance network, please consult with your insurance company to find a nearby participating provider. Patient Education Materials: Ankle Sprain A MESSAGE TO ALL PATIENTS REGARDING OPIOIDS PRESCRIPTION OPIOIDS: WHAT YOU NEED TO KNOW Prescription opioids can be used to help relieve fxjgdolt-kx-gascjm pain and are often prescribed following a surgery or injury, or for certain health conditions. These medications can be an important part of the treatment but also come with serious risks. It is important to work with your healthcare provider to make sure you are getting the safest, most effective care. WHAT ARE THE RISKS AND SIDE EFFECTS OF OPIOID USE? Prescription opioids carry serious risks of addiction and overdose, especially with prolonged use. An opioid overdose, often marked by slowed breathing, can cause sudden . The use of prescription opioids can have a number of side effects as well, even when taken as directed: ? Tolerance?meaning you might need to take more of the medication for the same pain relief ? Physical dependence?meaning you have symptoms of withdrawal when a medication is stopped ? Increased sensitivity to pain ? Constipation ? Nausea, vomiting, and dry mouth ? Sleepiness and dizziness ? Confusion ? Depression ? Low levels of testosterone that can result in lower sex drive, energy, and strength ? Itching and sweating RISKS ARE GREATER WITH: ? History of drug misuse, substance use disorder, or overdose ? Mental health conditions (such as depression or anxiety) ? Sleep apnea ? Older age (65 years and older) ? Avoid alcohol while taking prescription opioids. Also, unless specifically advised by your health care provider, medications to avoid include: ? Benzodiazepines (such as Xanax or Valium) ? Muscle relaxants (such as Soma or Flexeril) ? Hypnotics (such as Ambien or Lunesta) ? Other prescription opioids KNOW YOUR OPTIONS Talk to your health care provider about ways to manage your pain that don?t involve prescription opioids. Some of these options may actually work better and have fewer risks and side effects. Options may include: ? Pain relievers such as acetaminophen, ibuprofen, and naproxen ? Some medication that are also used for depression or seizures ? Physical therapy and exercise ? Cognitive behavioral therapy, a psychological, goal-directed approach, in which patients learn how to modify physical, behavioral, and emotional triggers of pain and stress. IF YOU ARE PRESCRIBED OPIOIDS FOR PAIN: ? Never take opioids in greater amounts or more often than prescribed. ? Follow up with your primary health care provider. o Work together to create a plan on how to manage your pain. o Talk about ways to help manage your pain that don?t involve prescription opioids. o Talk about any and all concerns and side effects. ? Help prevent misuse and abuse o Never sell or share prescription opioids. o Never use another person?s prescription opioids. ? Store prescription opioids in a secure place and out of reach of others (this may include visitors, children, friends, and family). ? Safely dispose of unused prescription opioids: Find your community drug take-back program or your pharmacy mail-back program, or flush them down the toilet, following guidance from the Food and Drug Administration (www.fda.gov/Drugs/Re sourcesForYou). ? Visit www.cdc.gov/drugoverd ose to learn about the risks of opioids abuse and overdose. ? If you believe you may be struggling with addiction, tell your health palliative care coordinator and ask for guidance or call [facility] National Helpline at [phone] q Source: [place] Department of Health (more content not included)... Normal [facility] XR Ankle 3+ Views Righton XR Ankle 3+ Views Right Exam Date/Time: 07/16/2020 11:30 EDT Reason for Exam: Pain Report IMPRESSION: NO ACUTE OSSEOUS ABNORMALITY. EXAM: XR Ankle 3+ Views Right COMPARISON: None available REASON FOR EXAMINATION: Pain after injury FINDINGS: AP, lateral and oblique views of the ankle were obtained. FINDINGS: No acute fracture or dislocation. Ankle mortise is within normal limits. Talar dome is intact. Soft tissue swelling of the ankle. FINAL REPORT Dictated: 07/16/2020 11:57 am Reggie Kern DO Signed (Electronic Signature): 07/16/2020 11:57 am Signed by: Reggie Kern DO Transcribed by: WESLEY Technologist: [facility] XR Foot 3+ Views Righton XR Foot 3+ Views Right Exam Date/Time: 07/16/2020 11:30 EDT Reason for Exam: Pain, Traumatic Report IMPRESSION: NO ACUTE OSSEOUS ABNORMALITY. EXAM: XR Foot 3+ Views Right COMPARISON: None available HISTORY: Pain after injury TECHNIQUE: AP, lateral and oblique views of the foot obtained. FINDINGS: No acute fracture or dislocation. Joint spaces are preserved. Chronic tiny ossicle along the medial margin of the proximal phalanx of the great toe. Soft tissues are within normal limits. FINAL REPORT Dictated: 07/16/2020 11:56 am Reggie Kern DO Signed (Electronic Signature): 07/16/2020 11:56 am Signed by: Reggie Kern DO Transcribed by: WESLEY Technologist: [facility] XR SHOULDER RT 2V OR >on XR SHOULDER RT 2V OR > [address] [place] [address] Patient: JACKI ROCHA Exam Date: 12/02/2017 : 1985 Gender:M Ordering : ERNESTO OROZCO Admission #: [id number] Family : DR CARLOS DIAS Order #: [id number] CLICK HERE TO VIEW EXAM RADIOLOGY REPORT PROCEDURE: RADIOGRAPH SHOULDER RIGHT MIN 2 VIEWS COMPARISON: XR SHOULDER RT 2V OR >, 12/02/2017. INDICATIONS: Acute closed right shoulder dislocation FINDINGS: BONES: Interval reduction of glenohumeral dislocation. No definite fracture. SOFT TISSUES: No visible soft tissue swelling or radiopaque foreign body. OTHER: Negative. CONCLUSION: 1. Reduction of glenohumeral dislocation Dictated by: Carlos Dias M.D. on 12/02/2017 at 18:07 Approved by: Carlos Dias M.D. on 12/02/2017 at 18:08 Normal [facility] XR SHOULDER RT 2V OR > [address] [place] [address] Patient: JACKI ROCHA Exam Date: 12/02/2017 : 1985 Gender:M Ordering : ERNESTO OROZCO Admission #: [id number] Family : Order #: [id number] CLICK HERE TO VIEW EXAM RADIOLOGY REPORT PROCEDURE: RADIOGRAPH SHOULDER RIGHT MIN 2 VIEWS COMPARISON: None. INDICATIONS: Acute right shoulder dislocation FINDINGS: BONES: Anterior glenohumeral dislocation. No definite fracture SOFT TISSUES: No visible soft tissue swelling or radiopaque foreign body. OTHER: Critical results communicated via PACs CONCLUSION: 1. Anterior glenohumeral dislocation Dictated by: Carlos Dias M.D. on 12/02/2017 at 17:13 Approved by: Carlos Dias M.D. on 12/02/2017 at 17:14 Normal [facility] Encounters Encounter Date Encounter Type Care Provider Facility Start: 03-01-2018 End: 03-01-2018 Patient encounter procedure DOCTOR KATERINA Facility:[facility] Start: 12-02-2017 End: 12-02-2017 Patient encounter procedure MARCO A LOPEZ Facility:[facility] Payers Date Payer Category Payer Unknown [id number] 1985 Unknown [id number] 1958 Self-pay [id number] 1958 Unknown [id number] Summary Purpose Family History No Family History Records FoundNo Family History Records Found Advance Directives No Advanced Directives Records FoundNo Advanced Directives Records Found Additional Source Comments (unrecognized sect ion and content) No Status Records FoundNo Status Records Found INFORMATION SOURCE (unrecogn ized section and content) DATE CREATED AUTHOR 03/11/2018 [facility] DATE CREATED AUTHOR AUTHOR'S ORGANIZ ATION 05/25/2021 [facility] FOR RECORDS PERTAINING TO PATIENTS WHO ARE OR HAVE BEEN ENROLLED IN A CHEMICAL DEPENDENCY/SUBSTANCEABUSE PROGRAM, SOME INFORMATION MAY BE OMITTED. This clinical summary was aggregated from multiple sources. Caution should be exercised in using it in the provision of clinical care. This summary normalizes information from multiple sources, and as a consequence, information in this document may materially change the coding, format and clinical context of patient data. In addition, data may be omitted in some cases. CLINICAL DECISIONS SHOULD BE BASED ON THE PRIMARY CLINICAL RECORDS. [facility] [employer] [facility]. provides no warranty or guarantee of the accuracy or completeness of information in this document.
[2023-05-07] MEDS: KETOROLAC TROMETHAMINE 60 MG/2 ML VIAL IM (09:11)
--- NOTE | 2023-05-07 09:50 | ED.BACK1 ---
HPI HPI - Back Pain/Injury General Chief Complaint: Back Pain/Injury Stated Complaint: BACK PAIN Time Seen by Provider: 05/07/23 08:55 Source: patient Mode of arrival: walk-in Limitations: no limitations History of Present Illness HPI Narrative: 38-year-old male presents for pain to his right lower back. It started yesterday when he was trying to move a heavy item. He did not fall and nothing struck him in his back. It goes into his buttock but not into his leg. No dysuria or hematuria and the pain is moderate and worse in certain positions. Related Data Previous Rx's ?Medication ?Instructions ?Recorded ibuprofen 800 mg tablet 800 mg PO Q8H PRN pain #20 tabs 02/27/23 methocarbamol 500 mg tablet 500 mg PO Q8H PRN muscle spsm #14 02/27/23 tabs prednisone 50 mg tablet 50 mg PO DAILY 5 days #5 tabs 02/27/23 acetaminophen 300 mg-codeine 30 mg 1 tab PO Q6H PRN pain 5 days #20 05/07/23 tablet tabs methocarbamol 750 mg tablet 750 mg PO Q8H #20 tabs 05/07/23 Allergies Allergy/AdvReac Type Severity Reaction Status Date / Time No Known Drug Allergies Allergy Verified 05/07/23 08:45 Opioid HPI Opioid Management Most Recent Opioid Data: Last Pain Scale 3 05/07/23 09:55 Last ED Pain Assessment 05/07/23 09:55 Last MAR Pain Assessment 05/07/23 09:11 Review of Systems ROS Narrative A ten point review of systems is negative except as noted above. PFSH PFSH Social History Smoking status: Current every day smoker Exam Narrative Exam Narrative: Nurses note and vital signs reviewed and patient is not hypoxic. General: The patient appears well and in no apparent distress. Patient is resting comfortably on cart. Skin: Warm, dry, no pallor noted. There is no rash noted. Head: Normocephalic, atraumatic Eye: Normal conjunctiva, no drainage Ears, Nose, Mouth, and Throat: oral mucosa is moist. Nares patent. Cardiovascular: Regular Rate and Rhythm Respiratory: Patient is in no distress, no accessory muscle use, lungs are clear to auscultation, no wheezing, rales or rhonchi Back: No bruise rash or palpable tenderness. No midline tenderness. GI: Soft and nontender Musculoskeletal: The patient has no evidence of calf tenderness, no pitting edema, symmetrical pulses noted bilaterally Neurological: A&O, normal speech, motor strength intact in his lower extremities Psychiatric: Cooperative Constitutional Vital Signs, click to edit/add: Last Vital Signs Temp 98.4 F 05/07/23 08:45 Pulse 100 H 05/07/23 08:45 Resp 18 05/07/23 08:45 BP 144/92 H 05/07/23 08:45 Pulse Ox 98 05/07/23 08:45 O2 Del Method Room Air 05/07/23 08:45 Course Vital Signs Vital signs: Vital Signs Temperature 98.4 F 05/07/23 08:45 Pulse Rate 100 H 05/07/23 08:45 Respiratory Rate 18 05/07/23 08:45 Blood Pressure 144/92 H 05/07/23 08:45 Pulse Oximetry 98 05/07/23 08:45 Oxygen Delivery Method Room Air 05/07/23 08:45 Temperature 98.4 F 05/07/23 08:45 Pulse Rate 100 H 05/07/23 08:45 Respiratory Rate 18 05/07/23 08:45 Blood Pressure 144/92 H 05/07/23 08:45 Pulse Oximetry 98 05/07/23 08:45 Oxygen Delivery Method Room Air 05/07/23 08:45 MDM - Back Pain/Injury MDM Narrative Medical decision making narrative: X-ray findings are discussed with the patient and he will be treated symptomatically. He was also given a work note. Treatment diagnosis and follow-up were discussed with the patient. Differential Diagnosis Differential diagnosis: Likely lumbar radiculopathy, strain of lumbar region and other (Lumbar fracture, lumbar arthritis) Imaging Data Lumbar x-rays: Radiologist's impression: ITS Impressions Lumbar Spine X-Ray 05/07/23 08:59 IMPRESSION: There is no acute process. Electronically authenticated by: GERMÁN WELLS Date: 05/07/2023 10:06 Discharge Plan Discharge Stand Alone Forms: Portal Instructions Chief Complaint: Back Pain/Injury Clinical Impression: Strain of lumbar region Patient Disposition: Home, Self-Care Time of Disposition Decision: 10:32 Condition: Good Mode of Transportation: Private Vehicle Prescriptions / Home Meds: New acetaminophen-codeine 300-30 mg tablet 1 tab PO Q6H PRN (Reason: pain) 5 Days Qty: 20 0RF methocarbamol 750 mg tablet 750 mg PO Q8H Qty: 20 0RF No Action ibuprofen 800 mg tablet 800 mg PO Q8H PRN (Reason: pain) Qty: 20 0RF prednisone 50 mg tablet 50 mg PO DAILY 5 Days Qty: 5 0RF methocarbamol 500 mg tablet 500 mg PO Q8H PRN (Reason: muscle spsm) Qty: 14 0RF Print Language: Tristanian Instructions: Low Back Strain (ED), Back Pain (ED) Referrals: Physician,Non-Staff, MD [Primary Care Provider] - 1 week
== END 2023-05-07 10:45 | disposition home or self-care (01) ==
PROVIDERS: Emergency Provider Emergency Medicine
DX: S39.012A Strain of muscle, fascia and tendon of lower back, initial encounter (principal); X50.0XXA Overexertion from strenuous movement or load, initial encounter; F17.210 Nicotine dependence, cigarettes, uncomplicated
CPT/HCPCS: 72100; 96372; 99284

== ENCOUNTER 2023-09-22 09:15 | Emergency (ER) | payer SELFPAY ==
[2023-09-22] VITALS (11 sets, daily range): BP systolic 113–156; BP diastolic 81–103; PULSE 57–79; TEMP 36.7; O2SAT 95–100; BMI 29.8
--- NOTE | 2023-09-22 09:31 | CT_ITS ---
The [address] [address] Patient Name: JACKI ROCHA MRN: [id number] date: 1985 Sex: M Assigned Patient Location: ED.MAIN Current Patient Location: ED.MAIN Accession/Order Number: [id number] Exam Date: 09/22/2023 09:58 Report Date: 09/22/2023 10:37 At the request of: KAYCE GRAF Procedure: CT head/brain wo con EXAM: CT head/brain wo con CLINICAL INDICATION: Posterior headache, no trauma COMPARISON: None TECHNIQUE: Axial CT images of the brain were obtained without contrast. Coronal and sagittal reformats were obtained. Dose reduction techniques were achieved by using automated exposure control and/or adjustment of mA and/or kV according to patient size and/or use of iterative reconstruction technique. FINDINGS: No intracranial hemorrhage, extra-axial fluid collection, hydrocephalus, midline shift, or acute infarction. No other mass effect. Patent basal cisterns. No calvarial fracture. Normal soft tissues. Paranasal sinuses and mastoid air cells are well-aerated. CT/CT head/brain wo con IMPRESSION: No acute intracranial process. Electronically authenticated by: NAZ BRADSHAW Date: 09/22/2023 10:37
--- NOTE | 2023-09-22 09:32 | ED_ITS ---
HPI HPI - General Adult General Chief complaint: Headache Stated complaint: HEADACHE Time Seen by Provider: 09/22/23 09:23 Source: patient Mode of arrival: walk-in Limitations: no limitations History of Present Illness HPI narrative: 38-year-old male presents to the emergency department for headache. Its mostly posterior and it started 2 days ago and it has been continuous. No trauma fever or stiff neck. No weakness or numbness. He took Tylenol and Motrin but it did not help. He does not get frequent headaches. Related Data Home Medications ?Medication ?Instructions ?Recorded ?Confirmed magnesium 200 mg tablet 200 mg PO DAILY 09/22/23 09/22/23 Previous Rx's ?Medication ?Instructions ?Recorded hlblfhatws-rytrdccvwarbi-yblozyje 1 cap PO Q6H PRN pain 5 days #20 09/22/23 50 mg-300 mg-40 mg capsule caps (Fioricet) Allergies Allergy/AdvReac Type Severity Reaction Status Date / Time No Known Drug Allergies Allergy Verified 05/07/23 08:45 Opioid HPI Opioid Management Most Recent Opioid Data: Last Pain Scale 2 09/22/23 10:22 Last ED Pain Assessment 09/22/23 10:22 Last MAR Pain Assessment 09/22/23 09:49 Review of Systems ROS Narrative A ten point review of systems is negative except as noted above. PFSH PFSH Social History Smoking status: Current every day smoker Exam Narrative Exam Narrative: Nurses note and vital signs reviewed and patient is not hypoxic. General: The patient appears well and in no apparent distress. Patient is resting comfortably on cart. Skin: Warm, dry, no pallor noted. There is no rash noted. Head: Normocephalic, atraumatic Eye: Normal conjunctiva, no drainage, EOMI. PERRL Ears, Nose, Mouth, and Throat: oral mucosa is moist. Nares patent. Cardiovascular: Regular Rate and Rhythm Respiratory: Patient is in no distress, no accessory muscle use, lungs are clear to auscultation, no wheezing, rales or rhonchi Back: non-tender, no CVA tenderness bilaterally to percussion. GI: Soft and nontender Musculoskeletal: The patient has no evidence of calf tenderness, no pitting edema, symmetrical pulses noted bilaterally Neurological: A&O x4, normal speech; upper and lower extremity strength intact and symmetric Psychiatric: Cooperative Constitutional Vital Signs, click to edit/add: Last Vital Signs Temp 98.1 F 09/22/23 09:22 Pulse 70 09/22/23 10:30 Resp 14 09/22/23 10:30 BP 138/96 H 09/22/23 10:30 Pulse Ox 99 09/22/23 10:30 O2 Del Method Room Air 09/22/23 09:22 Course Vital Signs Vital signs: Vital Signs Temperature 98.1 F 09/22/23 09:22 Pulse Rate 72 09/22/23 09:22 Respiratory Rate 18 09/22/23 09:22 Blood Pressure 156/103 H 09/22/23 09:22 Pulse Oximetry 99 09/22/23 09:22 Oxygen Delivery Method Room Air 09/22/23 09:22 Temperature 98.1 F 09/22/23 09:22 Pulse Rate 70 09/22/23 10:30 Respiratory Rate 14 09/22/23 10:30 Blood Pressure 138/96 H 09/22/23 10:30 Pulse Oximetry 99 09/22/23 10:30 Oxygen Delivery Method Room Air 09/22/23 09:22 Medical Decision Making MDM Narrative Medical decision making narrative: He had a vagal episode after his IV was started. He was given IV morphine and his headache is much better now. Blood pressure remains marginally high and he was given a list of PCPs to have follow-up with regarding his high blood pressure. In the meantime he is prescribed Fioricet and the rest of his workup including his CAT scan is negative. Treatment diagnosis and follow-up were discussed with the patient. Differential Diagnosis Differential Diagnosis: Hypertension, intracranial process, tension headache Lab Data Lab results reviewed: Yes I reviewed the patient's lab results Labs: Lab Results 09/22/23 Range/Units 09:37 WBC 5.8 (4.0-11.0) 10^3/uL RBC 5.21 (4.70-6.10) 10^6/uL Hgb 15.0 (14.0-18.0) g/dL Hct 46.1 (42.0-54.0) % MCV 88.5 (80.0-94.0) fL MCH 28.8 (25.9-34.0) pg MCHC 32.5 (29.9-35.2) g/dL RDW 14.2 (11.0-15.0) % Plt Count 213 (150-450) 10^3/uL MPV 10.1 (9.5-13.5) fL Neut % (Auto) 45.1 (43.0-75.0) % Lymph % (Auto) 30.5 (20.5-60.0) % Esmeralda % (Auto) 23.5 H (1.7-12.0) % Eos % (Auto) 0.2 L (0.9-7.0) % Baso % (Auto) 0.5 (0.2-2.0) % Neut # (Auto) 2.6 (1.4-6.5) 10^3/uL Lymph # (Auto) 1.8 (1.2-3.8) 10^3/uL Esmeralda # (Auto) 1.4 H (0.3-0.8) 10^3/uL Eos # (Auto) 0.0 (0.0-0.7) 10^3/uL Baso # (Auto) 0.0 (0.0-0.1) 10^3/uL Abs Immat Gran (auto) 0.01 (0.00-0.03) 10^3/uL Imm/Tot Granulo (auto) 0.2 (0.0-0.5) % Sodium 139 (136-145) mmol/L Potassium 3.5 (3.5-5.1) mmol/L Chloride 104 (98-107) mmol/L Carbon Dioxide 23.7 (21.0-32.0) mmol/L Anion Gap 14.8 BUN 11.0 (7.0-18.0) mg/dL Creatinine 0.98 (0.70-1.30) mg/dL Est GFR ( Amer) >60 (>=60) Est GFR (Non-Af Amer) >60 (>=60) BUN/Creatinine Ratio 11.2 Glucose 88 (74-106) mg/dL Calcium 9.0 (8.5-10.1) mg/dL Imaging Data CT scan - head: Radiologist's impression: ITS Impressions Head CT 09/22/23 09:31 IMPRESSION: No acute intracranial process. Electronically authenticated by: NAZ BRADSHAW Date: 09/22/2023 10:37 ECG Data Attestation: I personally reviewed and interpreted this ECG as follows: (EKG on my interpretation shows normal sinus rhythm with a rate of 54 and no acute change.) Discharge Plan Discharge Stand Alone Forms: Portal Instructions Chief Complaint: Headache Clinical Impression: Headache, Elevated blood pressure reading Patient Disposition: Home, Self-Care Time of Disposition Decision: 10:57 Condition: Good Mode of Transportation: Private Vehicle Prescriptions / Home Meds: New uivrqwdbus-qenxfzoshxrwg-wege [Fioricet] 50-300-40 mg capsule 1 cap PO Q6H PRN (Reason: pain) 5 Days Qty: 20 0RF No Action magnesium 200 mg tablet 200 mg PO DAILY Print Language: Swedish Instructions: Acute Headache (ED), Hypertension (ED) Additional Instructions: Follow-up with your PCP, list provided. Referrals: Physician,Non-Staff, MD [Primary Care Provider] - 1 week
--- OUTSIDE RECORDS SUMMARY | 2023-09-22 09:37 | XMS_ITS | CCD ---
Author Organization [facility] Care Team Providers Care Senior Adults Director Name Role Phone MARCO A LOPEZ Admitting Unavailable MARCO A LOPEZ Attending Unavailable MISC, DOCTOR Primary Care Unavailable LARISSA, CARLOS Castillo Consulting Unavailable AUSTIN, GIFTY Consulting Unavailable MISC, DOCTOR Primary Care Unavailable STRUS, LIZBETH Admitting Unavailable STRUS, LIZBETH Attending Unavailable GRECHMARISABEL, GIFTY Consulting Unavailable Problems Active Problems Problem [...] Name Value Interpretation Reference Range Facil ity Detention Documentson 05-24-2021 Detention Documents [id number]# 1.00CD:127 Normal Ly [facility] Coding Summary.on 07-24-2020 Coding Summary. CD:[id number] G h0bWw+PGhlYWQ+BK1OZGR sS48zgDJehB0MC7gWZD5J ACMATWCNOX1YZO9kzFY1T ZxzY1YdmbEd CwobuCZbHG43BSi8SJK6t VztYBcetW0mmWZbM5h6Bo CnYJ28xF03SDazQMFuQwW 3LjZpbjsgbWFy K8wzRaOioLKuHdk+PHRhY mxlIHdpZHRoPScxMDAlJy FisNekDV0rJo5hDTJbKIP vbGxhcHNlOiBj z4mmRYJgHGbdKY6anCfgK 8FotZR7XHZvm3r7Ln12dH I+UZNhVLV2xPgdYRriy84 7DsAqt1irSKY0 rKEfVIwcHPV3K12st6N5N BHsHSMuLYJ0aHQ1iP3chM mqrxpvY6WmyALaDpE2LPW 5jPWalI0reSbr efyquL2wIfy+O47ZAP7YG LHQTF4ZRsu9F5NuFqoznT I+FU94IEAcWD21aERilIH li7ylcSp0XzIy WLNySBJ6xJqyLYeuj2EqG HXwT39arQChi6H4XRRawP hraWEhHlTliXW0wG7yBUf bpqabt7ialamv Ohwuu4fouv66dP83L60nB RhuTBLrEQZ2BYYtIQJjcR wgbv0qzC3gYa4+DPaqy4q qo4qdbAb2RiWd OMZnoxFfoEprUMQ2h2SsK y20W9KivPxlf7DcUqj9jr 96fDOsg8H8cQV4HWghEFP kzC1cYHmoBeN4 NUXaSiQzzM25dDYcFHsrF o4kmIngrPpxWO1fWRTpho ljPEAizL5iNCMilPZazVf jVU1rYXGqukzm x159HnItPFM7HHBqfRVeV 2AgaQ5aFbUzXRXxQTHnJ7 HwdJYnYVzzG958ZKdqWwZ 8EJTtsgGiM4Ty EVZwkJdxQaF9b9L2Vh8Nx 7PmjsntYSL6ULttXDD7Lj A8PiRoCgJ0J9DvJes1VEM cxIbqVB7jX0Fx NFPxrdfjwqxzoOW4GZNlF HXfmU92mYSkCTjnVy8vz7 G7n400LANvNCDpyB72Lm1 udDogMTBwdCBU pW8dcptot2qfitfbNeCqS QHtRTr1HSr0UPXjvGaqAo NvGLQ8UrL7JQE2eKFdyQ5 zuWrumjzosA7m Oyc+M69btS2vMWP0JOB8p pncXLNupuOcEB12QL73V6 RyPjwvdGFibGU+PGRpdiB vjVpeUS0tCjKm f7hgz5KyFAqzJ5XbMVNrN DkvFrm2VATbMHD3nWX5tH 6yJLZqSZroc2H5mNO6D5L psqMfei6bz0nu PIJjYGwmP93qhXVvc0K2T KKcpAG6NKDjfRejEuFliB 93Oyc+LOGphGewu4PuIxq yy8slj6zxlEt1 OlHwBRVhncItiGlaLKY5n 6MsEx49F33kGHuiZWEwNW WoSOPjWDDotBcuyb7pqG6 wIi8+PGNvbCB3 mAL6lT5iSDKwHnR0NWjzQ 255JjRvgLEkYwucx4yop7 pthHv2UlQnIPCjyqQndQi nYTB8q6BiHs46 G16fQFrzDLAdONLwYLImB OGyvTpilu2ciS1gZf3+PC 7hn9pdat91lL55aNW+PHR pDOS4nGrjWUzc TGBlzG4iJLneQrP7OWZiU yOalG58kMYgXGapNb7olN tvfZebEG8sJDPgbonvz46 4ZnTjv5geCNIo wEAjFZafJKM5Q21jr2A3N GJdUEQgQNP7nSF2xL8pqE lnbjogbGVmdDsgdmVydGl tHZvdOYoqN279 IHRvcDsnPlBhdGllbnQgT zRpMIh0T9VmAht6RLRtjE pzUH5wkFLlGIptJh7sjNo yrXsxIT6kFASh rgjvh271YiBrd5hqGZYvz JRxDAxbHHK9O95pj1R6VI TrOEYmJUX0eJO5yQ3kpPu nbjogbGVmdDsg eyPheAscJGvuJQpuP629W HRvcDsnPkJpcnRoIERhdG G4LY18QK58uIUhe3R9yAL 2G0GyAZSrtemt ntivzDF0AVJkKPSknG12K z4jbBkiVg9aRHApWHR3RQ ZdvFKqI8UpxJ9sDmWwQAH lZLUkZ8QrnMMp DWsyP733EZidDeA3HYOgu fAcF9UbAEVceVduCwW3p4 S6Ny1AE5V0JP02OA59rEX gf2L9lZH8P8Uw SGOxcebhgcrvqDS6GXDwH DGpqX00Wo5ljKafOk1oDL AkWAB8OSRbpAZjD4MpwL3 yOiAjMDAwMDAw T8CkcQXnOOwkI787MDvjK rG6BFLzdaPxL0KrCGBrdG xhFhC9d9C8Ud4QMHd6QE7 1VH83wIQsz2R5 wIW6E0SiTKIawtroiqxpp AA3BJRsRVVlnY94Oi0phC hsVh1mQRQdVZO6NDTlaOP wQ2BvbO7oOkCf QPAxOAPsC8ParNZfWSyfG 769GJfeOsO8PMGvdeIiJ8 YmIXIhbDckJvE4t6G8Vp6 FQXVbLT19EUA3 tTQ5FN47LD40O5VfWzlat GFibGU+PHRhYmxlIHdpZH RoPScxMDAlJyBzdHlsZT0 mFl3vRYHzPQKn tDnqnLAbAmYrh5yfEHYbV VxhRB4mhOcgE5XvvUW6OS Gdj7x0Zf74J50kD1IqoAN +YFIanVP1qYQ3 dZ8pVjJvYlR5OJccY501O rTwhMWbDjyol9lwi5uwgX t1HiL5FCQtmeOogOnkFDQ 3t9QwJm93Q01j IHdpZHRoPSIxNSUiIHZhb Vbegb4kmH5nDp2+PGNvbC U9yJE8zE0pBrBjVfU6KBr zX133CbEgjNPo Ckprw6qvd4bgbJr8YsCfO JPiprXtnXscJZY7p0YlPd 79P7FvgDzab3XiQfj8oh5 5pZMdd4I0rSP2 C8QuQHEmxbzhpGHbwYleA O1yCUGpmvhmUDFpjT0wGQ MxD2a7AkWhUiP6KLzcV5K ujuP0EGMauGUo CBbiZXN3N56hm0R9LPNdS XBhCGF6vHQ5zS3wzRsmcb ogbGVmdDsgdmVydGljYWw xNOwrC138NRGy tWpcXYHjzD4mKMLvlOQdo BgbHP3bSCSpwkppCoMPIx LQXoitFL6SBZMAVYtpRzo vdGQ+PHRkIHN0 wFmxLUtuLVEaoY0gCBRwW 3r9DqMrMoU0ROzxA2OqYN EkaxcfXt23gE2gOgJjOpC 4HTgpD2MfvoE8 NOZatDYlBNvcJHU8G41wt 9C6YCLyIUCaDXO5iKP0pU 1hbGlnbjogbGVmdDsgdmV ydGljYWwtYWxp A408LUTtwXdiOnTnVnBgA bL5LBa5J7WtGoy1JXKojF rlWB5xzQYeSRptYe4rqKo buAooIU3uWYQj zybjJKDunR3fJKJnvXCfl HbdIU1jVGTsakppw034Gl DxVUR2LWZxtLByD3YgdG6 yOiAjMDAwMDAw Y5NdyIDeWNqjU566UDtgC oT5HBYwkkNbS0ZlNJHloN kgHlL3o0R9Ll4dRSJKZRM yczwvdGQ+PHRk UOA3lGduTFndLFZpiW1pH PXxM6e4LfEgZeZ0CIllN9 ZrIHCxdipiVc21eH2nByX jKiL7AIlmP9Qn evN0NVEsiTTdPHfwTJB9K 24ib5A0SHHnGOKaZJB1aS D7mG8oyJkkthbeqQKusQm gdmVydGljYWwt JRdiK125RHVfrUfqSb8ta CP6U5OqMqh3HFXdqXixVC 4biXQvKRhjJf2mdHuqdWu kEN9oOOAunlqo ZPExyS7cDETzjVIffAjrI K2uEZLgpbynn690SiYpSG Q5KDQqdMOdV3ZeqR9pPgK jNQFaAQZmC4Es eQSaCJcuA785PHmmIqH8B TBdqiObM6JsPYQqeXmbBl G7w4W3Zc6WgTToO6NwJ9b 0J3FlOaqgiPJ+ SN59XQBdMX49yOJhiSNuo 3nseXz0DoKrGMHuCZW6iW hmOGmaj9CtTWXdW23xtOL bq7P4JOWqqFul aLSaAuSqiHV9kR1mDPtgk crsj5lzmmylJihip9vron 40uC82N30uOVanBZWiEGU zMCUiIHZhbGln ss3orO6iZm8+HPTfzXT1m KL0kI7dMeCdWmI7MYukQ6 88CrNeuFOfKetcv3hcy2r yeWs2YbZzWDPc nkRxaEqoOOG7j1VpWe52D 29sIHdpZHRoPSIyMCUiIH GqtEakzo2kiM3cVy6+PC9 qr4raok14sE97 dHI+HVBaYKX1rOfaCWbtX ZBaiL5sEBjjOsW6FTDyVu ZysL90fQYfZZhnVj7nrTv kpQbuIG1kHRRp wepal730UmYsq6cqDRWzd FBfQUfmSCQ1A61or1I5VG IwPZDrEZC7rZF3sM4xxRh nbjogbGVmdDsg xpWwtZlzLWrsSAynE739H ZNelXjvPaLfyWFrA5qorb WBRN4xHfwldYT+PHRkIHN 0eWxlPSdwYWRk oY7dXUYkB8y1HuGuQsJ2Q QiyX8DxdaJ7FARfzVQcLM BjeMLYpQ5gatjpe5aurla gIzAwMDAwMDt0 KOs5PDRecXgiWhAuXGF4P nO5ZJL8uTZyjG4gbRpzey sxdB4tSdh+RklOOjwvdGQ +ELXkLUD8uSqg EFnfFYVymS2vFEYoH2x0W iZqDrV1LSbnD1CnicH0CN CdlSUjISTshDUDvE3wjqv rt7evrgqxQiNl PBPkZFr5QWl9TOPnzZxgE tWpASU7NuB0ZXL9hPTshR 4pzZviwzsuoP6gShh+TVJ OOjwvdGQ+PHRk KVJ0gIeyFXovWHTnqG1bB VEeO0f3AcIcEtB6FWzsX2 FonrF0PDIatFAcAQMzmGU ByL7zhttkb1jq rgipGtFuUXDuFLj5BLf7D WZkxSdvVuKfKDP4KeP8IO R4pVOanU7muZlwxqlvqA1 wOyc+NCO9HWE0 CL77VO29L5QbMrreoQByq +PHRhYmxlIHdpZHRoPS diIYFaWjCgsTahPS1mWl5 yZGVyLWNvbGxh cHNl (more content not included)... Normal [facility] Consent for Treatmenton Consent for Treatment [id number]#1 .00CD:127 Normal [facility] Discharge Instructionson Discharge Instructions [id number]# 1.00CD:127 Normal [facility] ED Clinical Summaryon 2020 ED Clinical Summary [place] [id number] ED Clinical Summary Person Information Name: JACKI ROCHA [facility] Age: 35 Years : 1985 Sex: Male Language: Vincentian PCP: Kelin Patel MD Marital Status: Single Phone: [phone] Visit Id: Visit Reason: Ankle injury - [...] 07/16/2020 11:58:51 07/16/2020 11:58:51 07/16/2020 11:58:51 ADDRESS: [address] [place] [id number] PHYS DOC NOTES: MEDICAL INFORMATION: Prescriptions Given: New Medications [id number], [address], [place] [id number], [phone] naproxen (Naprosyn 500 mg Tab) 1 Tablets [...] When: Kelin Patel [address] [place] [address] Business (1) In 3 days 07/19/2020 DIAGNOSIS: Ankle sprain Normal [facility] ED Note-Physicianon 07-17-19 ED Note-Physician Basic [...] pain, # 20 tab(s), Refills(s) 0, Pharmacy: [id number], 182, cm, 01/16/20 14:43:00 EST, [...] days 07/19/[address] [place] [address]- Business (1) Additional Instructions: Patient Education Ankle Sprain Attestation Patient seen and evaluated by the physician investigative assistant. Attending physician was present in the emergency department and supervised care. This report was transcribed using voice recognition software. Every effort was made to ensure accuracy, however, inadvertently computerized extra hand mistakes may be present. Appropriate healthcare PPE [...] Amanda ZHU (more content not included)... Normal [facility] Comment on above: Result Comment: Elec [...] Managing pain, stiffness, and swelling ? Take bhlf-zhh-hcvpdls and prescription medicines only as told by [...] Reviewed: 06/22/2018 Elsevier Patient Education ? 2019 [employer] Normal [facility] ED Patient Summaryon 021 ED Patient Summary [address] [address] Patient Discharge Instructions Person Information Name: JACKI ROCHA Age: 35 Years Arrival Date: 07/16/2020 10:38:10 Discharge Diagnosis: Ankle sprain Primary Care Physician: Jorge ANDERSON, Kelin Cordero Provider Information Primary Provider: Koko Dong DO [employer] Laborer:Aydin Patel PA-C The exam and treatment you received in the Emergency Department were for an urgent problem and are not intended as complete care. It is important that you follow up with a doctor, nurse practitioner, or physician?s investigative assistant for ongoing care. If your symptoms [...] With: Address: When: [place] [address] [place] [address] Business (1) In 3 days 07/19/2020 In the event that this physician does not participate in your insurance network, please consult with your insurance company to find a nearby participating provider. Patient Education Materials: Ankle Sprain A MESSAGE TO ALL PATIENTS REGARDING OPIOIDS PRESCRIPTION OPIOIDS: WHAT YOU NEED TO KNOW Prescription opioids can be used to help relieve srflxwlj-gb-lqwhxv pain and are often prescribed following a [...] be struggling with addiction, tell your health lead caregiver and ask for guidance or call [employer] National Helpline at 9-280-139-BFFL. v Source: [place] Department of Health (more content not included)... Normal [facility] XR Ankle 3+ Views Righton XR [...] Reggie Kern DO Transcribed by: WESLEY Technologist: [facility] XR Foot 3+ Views Righton XR Foot [...] Reggie Kern DO Transcribed by: WESLEY Technologist: [facility] XR SHOULDER RT 2V OR >on XR SHOULDER RT 2V OR > [address] [place] [address] Patient: JACKI ROCHA Exam Date: 12/02/2017 : 1985 Gender:M Ordering : ERNESTO OROZCO Admission #: [id number] Family : DR CARLOS DIAS Order #: [id number] CLICK HERE TO VIEW EXAM RADIOLOGY REPORT [...] Dias M.D. on 12/02/2017 at 18:08 Normal [facility] XR SHOULDER RT 2V OR > [address] [place] [address] Patient: JACKI ROCHA Exam Date: 12/02/2017 : 1985 Gender:M Ordering : ERNESTO OROZCO Admission #: [id number] Family : Order #: [id number] CLICK HERE TO VIEW EXAM RADIOLOGY REPORT [...] Dias M.D. on 12/02/2017 at 17:14 Normal [facility] Encounters Encounter Date Encounter Type Care Provider Facility Start: 03-01-2018 End: 03-01-2018 Patient encounter procedure DOCTOR KATERINA Facility: Start: 12-02-2017 End: 12-02-2017 Patient encounter procedure MARCO A LOPEZ Facility: Payers Date Payer Category Payer Unknown [id number] 1985 Unknown [id number] 1958 Self-pay [id number] 1958 Unknown [id number] Summary Purpose Family History No Family History Records FoundNo Family History Records Found Advance Directives No Advanced Directives Records FoundNo Advanced Directives Records Found Additional Source Comments (unrecognized sect ion and content) No Status Records FoundNo Status Records Found INFORMATION SOURCE (unrecogn ized section and content) DATE CREATED AUTHOR 03/11/2018 [facility] DATE CREATED AUTHOR AUTHOR'S ORGANIZ ATION 05/25/2021 [facility] FOR RECORDS PERTAINING TO PATIENTS WHO ARE [...] BE BASED ON THE PRIMARY CLINICAL RECORDS. [facility] [employer] [facility]. provides no warranty or guarantee of the accuracy or completeness of information in this document.
[2023-09-22 09:45] LABS: Basophils Percent Auto 0.5 % (0.2-2.0); Eosinophils Percent Auto 0.2 % (0.9-7.0); Hematocrit 46.1 % (42.0-54.0); Immature Granulocytes Abs Auto 0.01 10^3/uL (0.00-0.03); Immature Granulocytes Pct Auto 0.2 % (0.0-0.5); Lymphocytes Absolute Auto 1.8 10^3/uL (1.2-3.8); Lymphocytes Percent Auto 30.5 % (20.5-60.0); Mean Corpuscular HGB Conc 32.5 g/dL (29.9-35.2); Mean Corpuscular Hemoglobin 28.8 pg (25.9-34.0); Mean Corpuscular Volume 88.5 fL (80.0-94.0); Mean Platelet Volume 10.1 fL (9.5-13.5); Monocytes Absolute Auto 1.4 10^3/uL (0.3-0.8); Monocytes Percent Auto 23.5 % (1.7-12.0); Neutrophils Absolute Auto 2.6 10^3/uL (1.4-6.5); Neutrophils Percent Auto 45.1 % (43.0-75.0); Platelet Count 213 10^3/uL (150-450); Red Blood Count 5.21 10^6/uL (4.70-6.10); Red Cell Distribution Width 14.2 % (11.0-15.0); White Blood Count 5.8 10^3/uL (4.0-11.0)
[2023-09-22] MEDS: MORPHINE SULFATE 4 MG/ML VIAL IV (09:49)
--- NOTE | 2023-09-22 09:55 | ECG_ITS ---
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
[2023-09-22 09:58] LABS: Anion Gap 14.8; BUN Creatinine Ratio 11.2; Carbon Dioxide 23.7 mmol/L (21.0-32.0); Chloride 104 mmol/L (98-107); Estimated GFR (African America >60 (>=60); Estimated GFR (Non-African Ame >60 (>=60); Glucose 88 mg/dL (74-106); Potassium 3.5 mmol/L (3.5-5.1); Sodium 139 mmol/L (136-145)
[2023-09-22] MEDS: ONDANSETRON PF 4 MG/2 ML VIAL IV (10:19)
== END 2023-09-22 11:08 | disposition home or self-care (01) ==
PROVIDERS: Emergency Provider Emergency Medicine
DX: R51.9 Headache, unspecified (principal); I10 Essential (primary) hypertension; F17.200 Nicotine dependence, unspecified, uncomplicated
CPT/HCPCS: 36415; 70450; 80048; 85025; 93005; 96374; 96375; 99285; J2270; J2405

== ENCOUNTER 2024-02-27 12:32 | Emergency (ER) | payer SELFPAY ==
[2024-02-27 12:36] VITALS: BP 168/98; PULSE 109; TEMP 36.8; O2SAT 98; BMI 29.2
[2024-02-27 12:40] VITALS: O2SAT 100
[2024-02-27 12:50] VITALS: O2SAT 100
--- NOTE | 2024-02-27 12:51 | ED.GENADUL1 ---
HPI HPI - General Adult General Chief complaint: Headache Stated complaint: HEADACHE, VOMITING , NO APPETITE Time Seen by Provider: 02/27/24 12:34 Source: patient Mode of arrival: walk-in History of Present Illness HPI narrative: Patient present to the ED for complaints of a headache. He has a history of migraines periodically. He also has a history of high blood pressure when he comes in but he states he has not gotten that evaluated even though he has been instructed to. He said he had a little bit of nausea and vomiting and headache pain behind his eyes. He has sensitivity to sound. No fevers. He states that he does need a work note because he was not feeling well yesterday or today. Patient is alert and neurologically intact. No trauma. Patient ambulated back from the room in no acute distress. Patient declined COVID test at this time. He states he was sent home with a headache medication but he cannot remember what it was called. He was to nauseated to take it prior to arrival today. Related Data Home Medications ?Medication ?Instructions ?Recorded ?Confirmed magnesium 200 mg tablet 200 mg PO DAILY 09/22/23 02/27/24 Previous Rx's ?Medication ?Instructions ?Recorded quxgipppmi-sqqmhqaxcmmeh-jeuvdhzo 1 cap PO Q6H PRN pain 5 days #20 09/22/23 50 mg-300 mg-40 mg capsule caps (Fioricet) Allergies Allergy/AdvReac Type Severity Reaction Status Date / Time No Known Drug Allergies Allergy Verified 05/07/23 08:45 Opioid HPI Opioid Management Most Recent Opioid Data: Last Pain Scale 8 02/27/24 12:41 02/27/24 Review of Systems ROS Status of ROS 10 or more systems reviewed and unremarkable except as noted in history and below PFSH PFSH Social History Smoking status: Current every day smoker Little interest or pleasure in doing things: not at all Feeling down, depressed, or hopeless: not at all Exam Narrative Exam Narrative: Time Seen: [] Vital Signs: [Per nurse's notes.] General: [Alert] Skin: [Warm, dry, no rash.] Head: [Normocephalic, atraumatic.] Neck: [Supple, trachea midline.] Eye: [Pupils are equal, round and reactive to light, extraocular movements are intact, normal conjunctiva.] Ears, nose, mouth and throat: oral mucosa moist. Cardiovascular: [Regular rate and rhythm, no murmur.] Respiratory: [Lungs are clear to auscultation, respirations are non-labored, breath sounds are equal.] Gastrointestinal: [Soft, nontender, non distended, normal bowel sounds.] MSK: 5 out of 5 muscle strength x 4 extremities no calf pain or edema Psychiatric: [Cooperative, appropriate mood & affect.] Neurological: [Alert and oriented to person, place, time, and situation, no focal neurological deficit observed.] Constitutional Vital Signs, click to edit/add: Last Vital Signs Temp 98.2 F 02/27/24 12:36 Pulse 109 H 02/27/24 12:36 Resp 18 02/27/24 12:36 BP 168/98 H 02/27/24 12:36 Pulse Ox 98 02/27/24 12:36 O2 Del Method Room Air 02/27/24 12:36 Course Vital Signs Vital signs: Vital Signs Temperature 98.2 F 02/27/24 12:36 Pulse Rate 109 H 02/27/24 12:36 Respiratory Rate 18 02/27/24 12:36 Blood Pressure 168/98 H 02/27/24 12:36 Pulse Oximetry 98 02/27/24 12:36 Oxygen Delivery Method Room Air 02/27/24 12:36 Temperature 98.2 F 02/27/24 12:36 Pulse Rate 109 H 02/27/24 12:36 Respiratory Rate 18 02/27/24 12:36 Blood Pressure 168/98 H 02/27/24 12:36 Pulse Oximetry 98 02/27/24 12:36 Oxygen Delivery Method Room Air 02/27/24 12:36 Medical Decision Making [facility] Narrative Medical decision making narrative: Patient declined an IV. He requested oral Zofran and states he will go home and try the Fioricet at home. Work note was given for yesterday and today. He states he does work tomorrow but he thinks he will feel better by tomorrow. Patient declined COVID test. Again he was instructed to follow-up with his family doctor or obtain a family doctor for blood pressure management and evaluation. Patient states he will set that up. Return to ED if worsening symptoms otherwise follow-up outpatient. Differential Diagnosis Differential Diagnosis: Hypertension headache migraine viral syndrome Discharge Plan Discharge Chief Complaint: Headache Clinical Impression: Headache Patient Disposition: Home, Self-Care Time of Disposition Decision: 12:54 Condition: Good Mode of Transportation: Private Vehicle Prescriptions / Home Meds: No Action magnesium 200 mg tablet 200 mg PO DAILY nouhhbyrnh-qlpdpzwqtnzey-kvrx [Fioricet] 50-300-40 mg capsule 1 cap PO Q6H PRN (Reason: pain) 5 Days Qty: 20 0RF Print Language: Welsh Instructions: Acute Headache (ED) Referrals: Physician,Non-Staff, MD [Primary Care Provider] - 1 week
--- OUTSIDE RECORDS SUMMARY | 2024-02-27 12:54 | XMS_ITS | CCD ---
Author Organization [facility] Care Team Providers Care Sales Order Specialist Name Role Phone MARCO A LOPEZ Admitting [...] Name Value Interpretation Reference Range Facil ity Retirement Documentson 05-24-2021 Retirement Documents [id number]# 1.00CD:127 Normal Ly [facility] Coding Summary.on 07-24-2020 Coding Summary. CD:[id number] G h0bWw+PGhlYWQ+RF9YZMJ yX73jbMIxqS7ER3oTNZ3G UAJXDIGMTA6CLI1upDE1I ImwQ5EtnbPi ZqbvmZOdTH91MFn5YEF5d PtjSNcgkR4jcVKcT4g9Uv JhGG77hE66FOqsNVDjUhA 3LjZpbjsgbWFy D3xiObFzsUFsMsp+PHRhY mxlIHdpZHRoPScxMDAlJy KwiUqtDB8iDt2iRQFgUZV vbGxhcHNlOiBj p6gkFVDaPQqpWT7jiHewU 6QspIB7LXOil2f9Zl31wF I+HXDcPRM6cSsnHXxlt24 0IdCzr6xbDYY0 eCAtBNodCTG6N02at2Q1J UCxGAKwLRC3uTT1gZ3moB eejhmtA7EppEZxLjD7OKN 6iGPdaK4sxMfx buboqN2wOkl+W42AAV6WE NIRJA7XUns2J7XqXefnqZ I+PA25AXZhGO06fNMjtHL og8tbnWz5GyJs LPCeYIE2kCuoUPanj8ZxY VAvD48pxXHhu8K8GLJozM xseKSoFdYuhAN8sW3iDLc kaczwc0ebdkdn Yxpve0hoat28iO64G67cU LfqTBXeKLE8XKWwYBCreD wlww2hwW7vYu9+FCedw5x zc0stwXj8WiTf PKNdutItjCnjUKJ3a1LqV u62D4FdyAcnl6QoRjn3ek 98oVZph0J2dHE1GDzwYAK noO6yHFzlDvG0 CWWlExYowA76lTRqMZerO k1kmFcxmDqlQP0sAKCsxc lwGMMocD2eHQEliKGtvOj sHS4fXSRngipf o920RtIyZWT4PWCeoFShL 2JuoS4tTlEhRISiXGZwU0 UqkXYoPXjnU251XKneCyG 2JHJfuwReM6Sf CPZeoBulSqF3e9Z7Hw8Kh 8KikcdhWWL7EYnxXTT8Ic G9HgSzToU9Y6LhUfk4VEX joEusWL5uV9Uf NEZcexrkjtiqpED7LQTjS EBedI57yQNxHDhkZe8qg0 J5l869KOXrNNWkhK51Rb8 udDogMTBwdCBU yQ0tbtsbq3mpdbonBgGtR OCsHHv5SXp1NBFtuLzgQk CoAAB8GkH2AFB6eRVmkV1 ylKpzpdmgeI9l Oyc+W19moT5jSIC4USR5i fbgKJIvflGpQF37BZ69I8 RyPjwvdGFibGU+PGRpdiB woTptCG0vLgIl y7hao2BdGXavQ4DoQNOfN XarKfa8JBTgEWE6dAL6fL 4lBPDnODubm1Q5vFZ6Y7P lyePxhn6nw4zm TTGqBCeaA55gbXOht6J9Q UWbmVO6XGVjnTlsLxYynQ 93Oyc+RJRbsAihj3NkCqe fw5gjb8vpfHj2 FuNkDZAaqnMimDytPPT8o 3UwOy19M38uVVwmTUIfST StOUKpISTkpLpwlx4zuH7 wIi8+PGNvbCB3 yVW2jS6uOXDsHwF3IWjcX 166UqYcbPLaUmpaz3zcg9 zyfSm2OoKvKXWoaiSgkDi oWHB3v4LuXf57 A06gPGpgUIQzPKLzQELkP EDfoGbhmu8hwP4fTx0+PC 1mt6llqu27wM86eRJ+PHR iFHB8mJflOXbu WOVriT0jOFokZpC2XGHhM pUlcX99zMRzQJrqCz5jpB odxBdyNC0gKOOiaravq83 0QaRbb5meQLVk kYLkTUgjXLK9B10vi4Z3A TKwVTMhRUN0oBF3iI9ejB lnbjogbGVmdDsgdmVydGl eNAnjCRyeK714 IHRvcDsnPlBhdGllbnQgT rMxOCi2F1QvTyh5EPEvuW auSJ0xkWJfKAqrIs7yhSx mtEhbUA7mPHBo ncrgl005CrHle4jzXLKbu HEfLSeqHKX0L95cb2C7CK QfDJSqTHF2kFX3eN1ykZv nbjogbGVmdDsg vlZxrDjoALzwWVckU499M HRvcDsnPkJpcnRoIERhdG U2HG43XL89vSJpj6U9zKX 3L5StASMlydja fkxdlTX8JNBeQSDbfC89D i7vpVciEr5dAFBgNKX0QK LtkOSeV3GcnZ1eMwPxYLS wGWWpG5TgpGZr BQfbL137RLrjIfX0PKHlw uYfN8HfYEHbgPrlLaT0k3 M3Gn0YA5K0IF49LT96yPB sp9T6bJX5I5Vw CGOhpoaywitefTB2XFKrX KHqkP19Jx8evZmkTl2cCN LnBIG0FLBwfZLvL1ThpD1 yOiAjMDAwMDAw J3QlrJDjKJeaM295YCexH rB8FXPlsaAoG1RrDFAcoR nrPpK4m2R3Ja1EBFf4HK5 4EC45yTKyi4F3 cUA1L7KtBEJxikumnkgkw DQ1GYLaBGNxlW64Ny1zlZ kpVi4qYTVlCBP4HOGnsUX lP8QglZ6bLzOs CWIfYTBzM1EllMWfRVijF 598ZJscSpO2TDXcjcQjZ3 FgGRVlaJmuAzO4q6N3Kb6 RLXMmBS12ETO4 pNR7PC98BN72Z3LbDpzbk GFibGU+PHRhYmxlIHdpZH RoPScxMDAlJyBzdHlsZT0 zSq8lZBGjVLJq lRzyjXPeMmIwk1vmEOVaL NsxYD1krQrpO0PgdVL5GO Zrf1t6Yl83A45iC8JetCG +NYQpmAU2oQD1 dB5iMfCoWbO5LVuiH591H vIrjMVnEdqct5myo4dgsW r1ZyR8CPGajxFydCaoOAY 3v2GdNd58Z20g IHdpZHRoPSIxNSUiIHZhb Dlzia3zcN4zBa8+PGNvbC C1hIT6jT6aDmOmEnY4YRl hH467JdAloYDb Cshfr8nbp7hwhJq2AaYoQ JXgdlYmqXktESB6r4TgWs 25N4TlqBwpm8HpVad0tf6 8xBUnv2T8uAO3 D1VuAJMtrjwkkYOpwIimK W3uEYYfcybvNDIreP9vDB KqN0g7TwXrCcZ7XJoxB7N vjkF0ZPAxdKWi DFrbHMQ2P60gy9U3LFMsO OXbIZT9oKL4yT4tcGvrgv ogbGVmdDsgdmVydGljYWw mPMvqE646GGKn nAtlRVKgtK1hTELmtTZmq McnGW7tWYJmpwaqJoIOSp BKUbhcIX2HYNSNKPgnWpj vdGQ+PHRkIHN0 vRbbWRzkPMFgqZ0eDFKcN 6q1GuQrMyW2YVilZ2FbEK CcwtkbNe48bE0jOoOzWiY 7ECndN6PbqlV3 VKNobAEmTQqkRFC4U84bk 7A2QZBpCVGoUNW9kNY6dK 1hbGlnbjogbGVmdDsgdmV ydGljYWwtYWxp D065EZFfjZocHpOxEdAlC wQ7QGr9V6McCpo4HLXmaR xgXR6zuCUdDGcnLx6gnTf dsJqkLP7oGZCl dtndPDSmsW7sXPMeqRAnj GqiNF5hEVOybgqje146Ts QbXCC6QTIvoSJaX9UrtJ4 yOiAjMDAwMDAw F5OhkDUsJOgrE420LRorZ kS9FOPlbsJhF7RyRXBwjT smGeF6t0R4Wt6rHBUKYEK yczwvdGQ+PHRk HOX6xVwkBMzoQUModQ0uQ UGbP1g8WzFjCmX7VMccR7 GzBOMmilmbMl30fS5hYgT nJjR8RKnzD1Ik bxE6GELayLUuNUvcDGV7X 06co0P7ZJAbSRDjVKF2jB I2wJ8tnRcjxsfowKZwbAn gdmVydGljYWwt SNdqY952XBSurPjuEl1hc WD0L6NiEll9HNDduYxjSJ 4boZAcSBpxBa1maQevzGi lOT8mUNKzapmf UNCurF5zZQAirFHuiBpjS B3kSUXdshqku363EoCeSZ J7FLIcnMIzN2LbzQ2bKoK lRLDaICByX6Ev qAPkHZcpI425BWtoHhE9F AMqvqGoQ3AxQAUdhFrtLy F7c7K9Cg8VlUXvP2PxG3p 6B4VoAkmzcTA+ RY37UANtUY56lURtjPHvs 4zmsOe1UoKtCCIxNBW1sM crUOsxj0LtNEKoT91pdXY kb9C4EMZtjBeu cDXhFqTatUU7jX6cIQyuy fdbt7mijlakExbhv7kahx 40fG70O46yXGzwGVRkFKK zMCUiIHZhbGln ul1rtC4jNl7+PITgjUG0w ZI8nI7vJfHsAkX7OGngJ9 31NgTmqHDoDgzun3wjt7u skHm2HcShEGIs joNhnJitIKE7b8OrRi47V 29sIHdpZHRoPSIyMCUiIH NsoIajdi9qiA3gIt2+PC9 uw5kiro98sH00 dHI+YEXuONJ8yNziPUvoD EGszG4pIShlXzF9VFIxUh VxsL71hCQvTUecGe8iyJy moVxeDM0rLJPt sgpqx222WkKfn2pfVAXiv VEzSJiqODN9O69ih0A4ZQ NoPDVkTJU1pMI5aT6tbYw nbjogbGVmdDsg khFkxKpcNHbrQJquJ821C UEgxFetGfWlaPQhD3crwo OBJP2mJdqpgVQ+PHRkIHN 0eWxlPSdwYWRk qD2zENWfQ4g6GrUgKrU2P FoaV6KctvJ5NRJzvZVhWM EjyYNHhD1nuoalm3ddupd gIzAwMDAwMDt0 MEh0GLKleAfeKuUfIJE8L yH9ASJ1cOUynC9uuWhpgz sphA9vCiu+RklOOjwvdGQ +ZFCgFCM2wMeg TPwwLAUffO0cTTAnS9z7K dMsRuC9MMtbB4AkraN7AQ KgoKKmCWHdpIZPgF1vtxz sk0pvfbvwNjLb LSJgODs1JLl6MSDgxEyqF pYjHFJ7LvJ8WAE1mICmkE 6hkZybzegfiI6sVxx+TVJ OOjwvdGQ+PHRk VTR4wZszIAobKYZktD2jE FCwX5x6FoPmPcN0DCshH0 BchhH4ANRdoUPoKARxhBT XvE5rydtdp9dq aenqHfLfBJPvANl8LWd7Y SGayLcdFiAoHAL3GqY9QR V1iGVjfB0xfRbahrtpaK4 wOyc+NYH7JOF7 VO74OX26X0DiZkhbgASow +PHRhYmxlIHdpZHRoPS lwVVGyQgZgwRuuWB2jSh0 yZGVyLWNvbGxh cHNl (more content not included)... Normal [facility] Consent for Treatmenton Consent for Treatment [id number]#1 .00CD:127 Normal [facility] Discharge Instructionson Discharge Instructions [id number]# 1.00CD:127 Normal [facility] ED Clinical Summaryon 2020 ED Clinical Summary [place] [id number] ED Clinical Summary Person Information Name: JACKI ROCHA Kaylie/[facility] Age: 35 Years : 1985 Sex: Male Language: Danish PCP: Kelin Patel MD Marital Status: Single Phone: [phone] Visit Id: Visit Reason: Ankle injury - [...] 07/16/2020 11:58:51 07/16/2020 11:58:51 07/16/2020 11:58:51 ADDRESS: [address] [place] [phone] PHYS DOC NOTES: MEDICAL INFORMATION: Prescriptions Given: New Medications [id number], [address] [place], [place] [phone], [phone] naproxen (Naprosyn 500 mg Tab) 1 Tablets [...] When: Kelin Patel [address] [place] [address] Business (1) In 3 days 07/19/2020 DIAGNOSIS: Ankle sprain Normal [facility] ED Note-Physicianon 07-17-19 ED Note-Physician Basic Information [...] pain, # 20 tab(s), Refills(s) 0, Pharmacy: [id number], 182, cm, 01/16/20 14:43:00 [...] days 07/19/[address] [place] [address]- Business (1) Additional Instructions: Patient Education Ankle Sprain Attestation Patient seen and evaluated by the physician golf course assistant. Attending physician was present in the emergency department and supervised care. This report was transcribed using voice recognition software. Every effort was made to ensure accuracy, however, inadvertently computerized e business specialist mistakes may be present. Appropriate healthcare PPE [...] Amanda ZHU (more content not included)... Normal [facility] Comment on above: Result Comment: Elec tronically [...] Managing pain, stiffness, and swelling ? Take sjez-ahs-ardyjqz and prescription medicines only as told by [...] Reviewed: 06/22/2018 Elsevier Patient Education ? 2019 [employer] Normal [facility] ED Patient Summaryon 021 ED Patient Summary [address] [address] Patient Discharge Instructions Person Information Name: JACKI ROCHA Age: 35 Years Arrival Date: 07/16/2020 10:38:10 Discharge Diagnosis: Ankle sprain Primary Care Physician: Jorge ANDERSON, Kelin Cordero Provider Information Primary Provider: Koko Dong DO Advanced Chuck Boner:Aydin Patel PA-C The exam and treatment you received in the Emergency Department were for an urgent problem and are not intended as complete care. It is important that you follow up with a doctor, nurse practitioner, or physician?s golf course assistant for ongoing care. If your symptoms [...] Address: When: [place] [address] [place] [address] Business (1) In 3 days 07/19/2020 In the event that this physician does not participate in your insurance network, please consult with your insurance company to find a nearby participating provider. Patient Education Materials: Ankle Sprain A MESSAGE TO ALL PATIENTS REGARDING OPIOIDS PRESCRIPTION OPIOIDS: WHAT YOU NEED TO KNOW Prescription opioids can be used to help relieve lweqhagp-ha-nunjki pain and are often prescribed following a [...] be struggling with addiction, tell your health vision care associate and ask for guidance or call [employer] National Helpline at 7-106-783-LLPX. v Source: [place] Department of Health (more content not included)... Normal [facility] XR Ankle 3+ Views Righton XR Ankle [...] Reggie Kern DO Transcribed by: WESLEY Technologist: [facility] XR Foot 3+ Views Righton [...] Reggie Kern DO Transcribed by: WESLEY Technologist: [facility] XR SHOULDER RT 2V OR >on XR SHOULDER RT 2V OR > [address] [place] [address] Patient: JACKI ROCHA Exam Date: 12/02/2017 : 1985 Gender:M Ordering : ERNESTO OROZCO Admission #: [id number] Family : DR CARLOS DIAS Order #: [id number] CLICK HERE TO VIEW EXAM RADIOLOGY REPORT [...] Dias M.D. on 12/02/2017 at 18:[address] [facility] XR SHOULDER RT 2V OR > [address] [place] [address] Patient: JACKI ROCHA Exam Date: 12/02/2017 : 1985 Gender:M Ordering : ERNESTO OROZCO Admission #: [id number] Family : Order #: [id number] CLICK HERE TO VIEW EXAM RADIOLOGY REPORT [...] Dias M.D. on 12/02/2017 at 17:[address] [facility] Encounters Encounter Date Encounter Type Care Provider Facility Start: 03-01-2018 End: 03-01-2018 Patient encounter procedure DOCTOR KATERINA Facility: Start: 12-02-2017 End: 12-02-2017 Patient encounter procedure MARCO A LOPEZ Facility: Payers Date Payer Category Payer Unknown [id number] 1985 Unknown [id number] 1958 Self-pay [id number] 1958 Unknown [id number] Summary Purpose Family History No Family History Records FoundNo Family History Records Found Advance Directives No Advanced Directives Records FoundNo Advanced Directives Records Found Additional Source Comments (unrecognized sect ion and content) No Status Records FoundNo Status Records Found INFORMATION SOURCE (unrecogn ized section and content) DATE CREATED AUTHOR 03/11/2018 [facility] DATE CREATED AUTHOR AUTHOR'S ORGANIZ ATION 05/25/2021 [facility] FOR RECORDS PERTAINING TO PATIENTS WHO ARE [...] BE BASED ON THE PRIMARY CLINICAL RECORDS. [facility] [employer] [facility]. provides no warranty or guarantee of the accuracy or completeness of information in this document.
[2024-02-27 12:59] VITALS: BP 163/107; O2SAT 98
[2024-02-27 13:00] VITALS: O2SAT 99
[2024-02-27] MEDS: ONDANSETRON 4 MG RAPDIS TABLET SL (13:00)
== END 2024-02-27 13:02 | disposition home or self-care (01) ==
PROVIDERS: Emergency Provider Emergency Medicine
DX: R51.9 Headache, unspecified (principal); F17.200 Nicotine dependence, unspecified, uncomplicated
CPT/HCPCS: 99283; Q0162

== ENCOUNTER 2024-08-18 06:47 | Emergency (ER) | payer SELFPAY ==
--- OUTSIDE RECORDS SUMMARY | 2024-08-18 06:54 | XMS_ITS | CCD ---
Author Organization [facility] Care Team Providers Care Employee Relations Representative Name Role Phone MARCO A LOPEZ Admitting [...] Name Value Interpretation Reference Range Facil ity Fdc Documentson 05-24-2021 Fdc Documents [id number]# 1.00CD:127 Normal Ly [facility] Coding Summary.on 07-24-2020 Coding Summary. CD:[id number] G h0bWw+PGhlYWQ+JH6CJEU lD14qtJPxlZ4LB0rBDB2T GOQAHDGIJB6MWE7rhBG7C SkyH8BjtjPp ZadzrPAhXF08ATw1EQF6j OrxGVcnwT0kfPZoK0c3Ab NnIW65aL96EJpqBARmAjR 3LjZpbjsgbWFy F3qfFyKtvQVhCja+PHRhY mxlIHdpZHRoPScxMDAlJy UmaYqqQM4yHw1bYWFpPAP vbGxhcHNlOiBj b5nxANYsKTgpYD0dnUezW 8KilZV9VLMqf0j8Ph21lS I+TJTkXKS8uKhuUNxzo41 1VmNpc6cyNCK3 nIWpJOlsVXR9F90zt9U5Z MLaUEOyTRL1tIW2tR4qkN psqgpeE3WfvLXvExE2HOJ 4rBKzhQ3ehJpy lqfbpF8uDur+B99DXO1WX YMTUO0VDik9I3MbIcmihI I+JQ50FPSsBO78zWMevKB ph4fanQf3WhGo PVWaJAP1rTgxPVrhw5LzV MSeM33lfRNta7O7RJIcbX uyoZCsJsTmzVO9hE0nPBp vmshaz2efwazo Aeuht9csmb70aV53B03iO JitRTPsGED4QAJaKUPzmB cdzm7owX2eRt9+VJvgy5m ea2dnjNx9BsSb DXGpagGwmFeqTLH9f2XoT y60R7GivErfr4LgFit1ne 32vIEmo4J5zKD7HQawAVS czZ9hTMaiDtF9 TWJmIsCktR52cTDePBilL o1dkFateQtuEY1gGIZxuy gbPBRdfQ7dIMSrtSPxzUg eLB3vTRQjkgjk n106YwWxZHK0XQQhmOJqW 0PmhO2iSzJmEPKgLYDjJ5 VobJDyRFwuR930RMaxRgG 3ISYzesEwJ3Pc TITclZhbCpY8b3V0Fn1Cd 3WouwcyHGL7VCqkHQS8Vc L2OfGlYcX6Z4MbEuo9GQE dhOqoUC8jE5Wc NEBcpjvklvlilYU7EJQdV PDvhZ77kXRhLUigNt3xl5 E4w144OHUgMZNykK46Vf8 udDogMTBwdCBU oJ6xpsjip9jcnwgdGzKrY KDnPKi4SNn1WZFkyYuuPv LbPFR9MtJ2ZZV3tHOgmZ0 yhKsjsdaxzX0w Oyc+U34quD1pQEX7DVP8w bslNGEffsZxOS16QH26O8 RyPjwvdGFibGU+PGRpdiB rfJfjPT0dGxAo n7wmk4LwONbmZ0WfTPSyZ ZejLcj6SOOuWRK0dIE1nF 2sPYHgLYhbb7D6fJM7H6S bltEslg9yj7zw AXEqKZylE90nxKVqp4H9O FRexDI7YODayMoxVrRdkT 93Oyc+GALonGulq6KzIuy mb1bbo2ymoKm4 EqYnQLVfrzZmzPypNZI1b 5GvBq35D55bFKzzYYByFE NvUAEgGVWglYdwjb3mfN2 wIi8+PGNvbCB3 wUB0rE8yNUHdIcS7ADlkF 162SnTwcJQkCxyek0myh7 silRy7ViGrAVRcwnNwzHr xGZT4e8BjTx53 R61aNUadICDmAGVaMNGdR XSewQrugf2ebE4wTt8+PC 6hz5pkmk80hR13lLO+PHR mVGI5zLrfDTvb DPYtuF5eGCtnTkW3AETmR pXczU13wPCyNKnpNq8ksQ bctVrxAL5lWABnkzvkb94 6YvRbj2hqOWZb kHDmRQvkQES9S18dd3F9E ASeMRWsIWO5kHO1jE4ilE lnbjogbGVmdDsgdmVydGl tWLjlOJnwI298 IHRvcDsnPlBhdGllbnQgT tYwTZt5B9CrJaq1FMPyzT bmUZ4umZItKKkjXq0fcXs zuCmpPJ3tFEWp ufzwm223KpNyn2zrZRQjb OTlALkmEIT4A48cr4C7KG PlKEImTYA7bWL7qJ6mpAt nbjogbGVmdDsg fpHfpZguOFiwJSgpX965W HRvcDsnPkJpcnRoIERhdG C8HM94HX74zJOaz5V4gRJ 1F6VqKMKdjufu iilydLQ8HAIlWERufL43W y9plHbmVk6nKEJcBVT3DE PjtNKqU6NeaO3rBlNrHEK wYBLeH3QitXGu RAduL168IFbjOrG7IDXxe tLjS2VhTHOyyBxmNpP4a3 E5Hr6PM3D8AJ92MM36kJT xp0R5xTA0P9Ya RWWjdhjkgibtrDJ8SCNaQ HQxlW14Me6qnIqiVc5dMO FgAPP9WLCxoKJgQ5RdjR4 yOiAjMDAwMDAw B9CtdQWwFHeoK201TUumU mX4GVXejzItU4SjWBRoaQ sxRwE9k8O1Se6WXLf2YW8 8EQ07qFNql4X2 gKC1T9FbAFVqzwiwgxhng GN4ROFkATBmnW22Ke8aiL mmXl3pFUBaRUY1NQHmnQD tN5VavZ7yQqRd KIOsWEBlL0OpjPLsNMfsK 044NXmbFwZ4YKWluvLoE2 DuUCCpgOfrEcX0n5Q3Yv3 WNQYfVZ23HHQ5 wEI7MO30BB76X2IoAsmuc GFibGU+PHRhYmxlIHdpZH RoPScxMDAlJyBzdHlsZT0 eWt2fSAWrXEJh hIsdfZKsSpBur1awNEYhX YjmEP3bqHunN0GunJH9FS Nyo8g6Is92N82hQ5DdvIW +TQFwoMP4iIF8 hY8gGpBmZlP7ECrdA033C zSskHTkZwyby2xdu1vydH l6JjX6GWHjcnIblJagGNE 7c0AeCg32K71y IHdpZHRoPSIxNSUiIHZhb Xmftq4txM0pZu4+PGNvbC L4hWE4fT9xUcNiWtA3IQi fK831DgLzsLLj Jdvdy6rcm6mabTq8JvVkT JFbirDgyEibMCA3a3AdMx 02D2YuwBbbk2DqMfk1xn3 8uOIac4G9gFP2 U4EtRPNkwyaqsYGibZifN X3rUGAjbirtQTPiqE1fZY ClR4k7LhLrBfT3ABjaD6J jykW2PLLabLKi GCfnZBZ8T33qw4I2CJMzI GYrSYL1gNU3xE3fkWphdv ogbGVmdDsgdmVydGljYWw mFYdmX013ZKPd cOywDCQmeP2hIHXkaLHfj MmyVT0aMWAsawgrZtVEJn CIIdgrVI4GDHPFYQjpFmw vdGQ+PHRkIHN0 iRbfKFmnYHEydS3bAPDjL 4e4WjMfAzA8UUaqI7OqNS TwfkmiLv80jM4kUkQmYgR 7KAwmA8YzliH7 KDMhhBHmGBotVKV1R30wz 7W4XDCaVVNwNTD9dYX0zT 1hbGlnbjogbGVmdDsgdmV ydGljYWwtYWxp I710AQVikEldTxKlRmUtO vL9GSb7Q0KgNmk3KBNylT dtIP1whWCfNJsyMs6rmBf lyKrrOS4oJFOe xcjsWFGesJ3iKBIasFLqs ZquMJ9kORFevjncd627Qy XyCBR8LWAssCQlT5NetT6 yOiAjMDAwMDAw E3WrnKZxIReaX584KClbK eV8XUZnvmFqG7EwMFVxrB foPsQ4t9O6Bz4wDSDKVFC yczwvdGQ+PHRk WOK7xKigNKfhBIQwnV2wZ EZtK3n6YoGpFfG1SIqhG5 LvXZGuonwvXf61sZ0sQmK wHmI6LQpxH9Ol ctR3CVMvyXHrYZbsPRF8P 19xv6J5EESyFGXjXLC2aL D7bL4xpZzmtpfjkLBshPs gdmVydGljYWwt LVizM182CHGdsShzYu5df YJ8O7QcYlv3IOYldUwjYM 8iyIIvUXosCo9zpWwbxWl iJO5pSGAmpcxk EYKoiB6lKQYlcBDyoNkoT W2oWOOcylsza642FlBzUY A1JRKeyCGvK0XhlW2kMsW dHSScDHOtV7Jk lQQpOVcbF005XEweQrA2O HAjzrEsM1NbTEBhcAujTd M9c8N4Lb8CsDOxJ0YrO4d 7A0XdUrecmMS+ FB42FVSjDX88zHEcmOQzg 5nhgIj5KbCcLXNaPUA6eT orFWqta4KrXSBbH31jhTK ny5V6JUSxkJrp iMHfUbVjcWX3wW7vAUtcf ljxt8iqiekeUwjsb8ecpx 08bU37P19aGDedQQSxYZI zMCUiIHZhbGln br6whP1oKb6+WQQexKY9u RT7jL8vIhQdAuY0HGwnS1 62MgSoqYXhOkxtg8qzk6d ckPu6GqQxFAHr ciJtsRapHXD5m0BkGz50U 29sIHdpZHRoPSIyMCUiIH VcrMkmfx0aoP5nFg7+PC9 ds7rqeu03sI03 dHI+JDHzJPQ1lOnqDKooQ XHbuM5zQKgaAhR4MJEuNp TtbW99sWExYOksSv0qfWw spIshZW7fKWLt aqwjl766EwKim6jvOXQsy URvCVnxBBH0I79wk2Y6XA LwPRWiRJS8tJA1qC1moRu nbjogbGVmdDsg dcZivMwiSEcjHXtxO096Z FZurMpgSqXhkRScC5xugr HTCD0bGfrkgIJ+PHRkIHN 0eWxlPSdwYWRk yZ5gVVVhF2l7InNnAqO6T CsqV3FshnL5LHQtoZJxIW BbrXJUbZ5qbehja5xglka gIzAwMDAwMDt0 WGf6MBWweQckQmWcGAY2D qP9QMZ6mPAycP4nhPyfnm lvqK6lUoo+RklOOjwvdGQ +THKbEMR7vJiw MIkuVELtaK5zGDPrH2t6J gOuXtG2CKrwE0HxmkO2LY DisXToTAOgeGPQrV7tehr kw3quammhOoJp BOXaWIl5USd4VJTknLlnR yRbJFO4SoH6NZP2fEEslD 9jxXvjyntklU4yAih+TVJ OOjwvdGQ+PHRk UBY6wMtgFGdnWQQinJ8tG GNjN4e7AgKvAnX0PCeaF0 LzqgG1CTDhcYSoACUcmEP RlW4mpuwhe0bc huqoWaLfDZVbZWx0HCa9W GSmoFhwNaRcNBW1SvK1EC Z7cPIfaI5moMwokbzytF8 wOyc+KXA1KUR7 AO88BF40D8UnBubikUQih +PHRhYmxlIHdpZHRoPS kuHXPpDjXycVtrTL2aPh3 yZGVyLWNvbGxh cHNl (more content not included)... Normal [facility] Consent for Treatmenton Consent for Treatment [id number]#1 .00CD:127 Normal [facility] Discharge Instructionson Discharge Instructions [id number]# 1.00CD:127 Normal [facility] ED Clinical Summaryon 2020 ED Clinical Summary [place] [id number] ED Clinical Summary Person Information Name: JACKI ROCHA Kaylie/[facility] Age: 35 Years : 1985 Sex: Male Language: Citizen Of [place] PCP: Kelin Patel MD Marital Status: Single Phone: [phone] Visit Id: Visit Reason: Ankle injury - [...] 07/16/2020 11:58:51 07/16/2020 11:58:51 07/16/2020 11:58:51 ADDRESS: [address] [place] [phone] PHYS DOC NOTES: MEDICAL INFORMATION: Prescriptions Given: New Medications [id number], [address], [place] [id number], [phone] naproxen (Naprosyn 500 mg Tab) 1 Tablets [...] When: Kelin Patel [address] [place] [id number] Business (1) In 3 days 07/19/2020 DIAGNOSIS: Ankle sprain Normal [facility] ED Note-Physicianon 07-17-19 ED Note-Physician Basic [...] pain, # 20 tab(s), Refills(s) 0, Pharmacy: [id number], 182, cm, 01/16/20 14:43:00 EST, Height/Length [...] days 07/19/[address] [place] [id number]- Business (1) Additional Instructions: Patient Education Ankle Sprain Attestation Patient seen and evaluated by the physician assistant spa manager. Attending physician was present in the emergency department and supervised care. This report was transcribed using voice recognition software. Every effort was made to ensure accuracy, however, inadvertently computerized jewelry sales coordinator mistakes may be present. Appropriate healthcare PPE [...] Amanda ZHU (more content not included)... Normal [facility] Comment on above: Result Comment: Elec [...] Managing pain, stiffness, and swelling ? Take nwmn-uud-fiqackr and prescription medicines only as told by [...] Reviewed: 06/22/2018 Elsevier Patient Education ? 2019 [employer] Normal [facility] ED Patient Summaryon 021 ED Patient Summary [address] [address] Patient Discharge Instructions Person Information Name: JACKI ROCHA Age: 35 Years Arrival Date: 07/16/2020 10:38:10 Discharge Diagnosis: Ankle sprain Primary Care Physician: Jorge ANDERSON, Kelin Cordero Provider Information Primary Provider: Koko Dong DO Advanced Senior Foreman:Aydin Patel PA-C The exam and treatment you received in the Emergency Department were for an urgent problem and are not intended as complete care. It is important that you follow up with a doctor, nurse practitioner, or physician?s assistant spa manager for ongoing care. If your symptoms become [...] Address: When: [place] [place] [id number] Business (1) In 3 days 07/19/2020 In the event that this physician does not participate in your insurance network, please consult with your insurance company to find a nearby participating provider. Patient Education Materials: Ankle Sprain A MESSAGE TO ALL PATIENTS REGARDING OPIOIDS PRESCRIPTION OPIOIDS: WHAT YOU NEED TO KNOW Prescription opioids can be used to help relieve kkdfzrly-kj-szaltf pain and are often prescribed following a [...] be struggling with addiction, tell your health career guidance technician and ask for guidance or call [employer] National Helpline at 8-005-727-JZZJ. v Source: [place] Department of Health (more content not included)... Normal [facility] XR Ankle 3+ Views Righton XR [...] Reggie Kern DO Transcribed by: WESLEY Technologist: [facility] XR Foot 3+ Views Righton [...] Reggie Kern DO Transcribed by: WESLEY Technologist: [facility] XR SHOULDER RT 2V OR >on XR SHOULDER RT 2V OR > [address] [place] [address] Patient: JACKI ROCHA Exam Date: 12/02/2017 : 1985 Gender:M Ordering : ERNESTO OROZCO Admission #: [id number] Family : DR CARLOS DIAS Order #: [id number] CLICK HERE TO VIEW EXAM RADIOLOGY REPORT [...] Dias M.D. on 12/02/2017 at 18:08 Normal [facility] XR SHOULDER RT 2V OR > [address] [place] [address] Patient: JACKI ROCHA Exam Date: 12/02/2017 : 1985 Gender:M Ordering : ERNESTO OROZCO Admission #: [id number] Family : Order #: [id number] CLICK HERE TO VIEW EXAM RADIOLOGY REPORT [...] Dias M.D. on 12/02/2017 at 17:14 Normal [facility] Encounters Encounter Date Encounter Type Care Provider Facility Start: 03-01-2018 End: 03-01-2018 Patient encounter procedure DOCTOR KATERINA Facility: Start: 12-02-2017 End: 12-02-2017 Patient encounter procedure MARCO A LOPEZ Facility: Payers Date Payer Category Payer Unknown [id number] 1985 Unknown [id number] 1958 Self-pay [id number] 1958 Unknown [id number] Summary Purpose Family History No Family History Records FoundNo Family History Records Found Advance Directives No Advanced Directives Records FoundNo Advanced Directives Records Found Additional Source Comments (unrecognized sect ion and content) No Status Records FoundNo Status Records Found INFORMATION SOURCE (unrecogn ized section and content) DATE CREATED AUTHOR 03/11/2018 [facility] DATE CREATED AUTHOR AUTHOR'S ORGANIZ ATION 05/25/2021 [facility] FOR RECORDS PERTAINING TO PATIENTS WHO [...] BE BASED ON THE PRIMARY CLINICAL RECORDS. [facility]. provides no warranty or guarantee of the accuracy or completeness of information in this document.
[2024-08-18 06:55] VITALS: BP 119/96; PULSE 86; TEMP 37.2; O2SAT 97; BMI 29.8
--- NOTE | 2024-08-18 07:15 | XR_ITS ---
The [place] [id number] Patient Name: JACKI ROCHA MRN: [id number] date: 1985 Sex: M Assigned Patient Location: ER Current Patient Location: ER Accession/Order Number: [id number] Exam Date: 08/18/2024 08:17 Report Date: 08/18/2024 08:18 At the request of: KAYCE GRAF MD Procedure: XR chest 1V PORTABLE AP ERECT CHEST 0800 hrs CLINICAL HISTORY: cough and fever COMPARISON: None The heart is within normal limits. There is no vascular congestion. The lungs, as visualized, are clear. There is no effusion or pneumothorax. The osseous structures are intact. XR/XR chest 1V IMPRESSION: NO ACUTE FINDINGS Impression dictated by: Dilcia Ann M.D. 08/18/2024 8:18 AM Dictation Location: [place] [address] Electronically authenticated by: [id number] Y Date: 08/18/2024 08:18
--- NOTE | 2024-08-18 07:16 | ED.GENADUL1 ---
HPI HPI - General Adult General Chief complaint: Upper Respiratory Infection Stated complaint: FEVER, COUGH, WEAKNESS Time Seen by Provider: 08/18/24 07:05 Source: patient Mode of arrival: walk-in Limitations: no limitations History of Present Illness HPI narrative: 39-year-old male presents for cough. He has had it for a few days and it got worse yesterday. He has been coughing up white phlegm, no hemoptysis. He is an occasional smoker. He states he had a fever at home. Related Data Home Medications ?Medication ?Instructions ?Recorded ?Confirmed magnesium 200 mg tablet 200 mg PO DAILY 09/22/23 08/18/24 Previous Rx's ?Medication ?Instructions ?Recorded odekthuags-fnasrbozdtjbm-tdgndkxk 1 cap PO Q6H PRN pain 5 days #20 09/22/23 50 mg-300 mg-40 mg capsule caps (Fioricet) azithromycin 250 mg tablet See Rx Instructions PO .COMPLEX #6 08/18/24 (Zithromax Z-Eliseo) tabs benzonatate 100 mg capsule 100 mg PO TID PRN cough #20 caps 08/18/24 Allergies Allergy/AdvReac Type Severity Reaction Status Date / Time No Known Drug Allergies Allergy Verified 08/18/24 06:54 Opioid HPI Opioid Management Most Recent Opioid Data: Last Pain Scale 8 02/27/24, 12:41 Review of Systems ROS Narrative A ten point review of systems is negative except as noted above. PFSH PFSH Social History Smoking status: Current every day smoker Little interest or pleasure in doing things: not at all Feeling down, depressed, or hopeless: not at all Exam Narrative Exam Narrative: Nurses note and vital signs reviewed and patient is not hypoxic. General: The patient appears well and in no apparent distress. Patient is resting comfortably on cart. He coughs occasionally Skin: Warm, dry, no pallor noted. There is no rash noted. Head: Normocephalic, atraumatic Eye: Normal conjunctiva, no drainage Ears, Nose, Mouth, and Throat: oral mucosa is moist. Nares patent. Cardiovascular: Regular Rate and Rhythm Respiratory: Patient is in no distress, no accessory muscle use, lungs are clear to auscultation, no wheezing, rales or rhonchi Back: non-tender GI: Soft and nontender Musculoskeletal: No joint swelling Neurological: A&O, normal speech Psychiatric: Cooperative Constitutional Vital Signs, click to edit/add: Last Vital Signs Temp 99.0 F 08/18/24 06:55 Pulse 86 08/18/24 06:55 Resp 19 08/18/24 06:55 BP 119/96 H 08/18/24 06:55 Pulse Ox 97 08/18/24 06:55 O2 Del Method Room Air 08/18/24 06:55 Course Vital Signs Vital signs: Vital Signs Temperature 99.0 F 08/18/24 06:55 Pulse Rate 86 08/18/24 06:55 Respiratory Rate 19 08/18/24 06:55 Blood Pressure 119/96 H 08/18/24 06:55 Pulse Oximetry 97 08/18/24 06:55 Oxygen Delivery Method Room Air 08/18/24 06:55 Temperature 99.0 F 08/18/24 06:55 Pulse Rate 86 08/18/24 06:55 Respiratory Rate 19 08/18/24 06:55 Blood Pressure 119/96 H 08/18/24 06:55 Pulse Oximetry 97 08/18/24 06:55 Oxygen Delivery Method Room Air 08/18/24 06:55 Medical Decision Making MDM Narrative Medical decision making narrative: COVID test is negative and chest x-ray is negative. He is treated with Zithromax and Tessalon. Treatment diagnosis and follow-up were discussed with the patient. Differential Diagnosis Differential Diagnosis: Pneumonia, COVID, URI Lab Data Lab results reviewed: Yes I reviewed the patient's lab results Labs: Lab Results 08/18/24 Range/Units 07:15 SARS-CoV-2 Ag (CV2AG) Negative (NEGATIVE) Imaging Data Chest x-ray: Radiologist's impression: ITS Impressions Chest X-Ray 08/18/24 07:15 IMPRESSION: NO ACUTE FINDINGS Impression dictated by: Dilcia Ann M.D. 08/18/2024 8:18 AM Dictation Location: [place] [address] Electronically authenticated by: [id number] Y Date: 08/18/2024 08:18 Discharge Plan Discharge Chief Complaint: Upper Respiratory Infection Clinical Impression: Upper respiratory infection Patient Disposition: Home, Self-Care Time of Disposition Decision: 08:39 Condition: Good Mode of Transportation: Private Vehicle Prescriptions / Home Meds: New azithromycin [Zithromax Z-Eliseo] 250 mg tablet See Rx Instructions .ROUTE .COMPLEX Qty: 6 0RF Rx Instructions: For 250 mg dose pack: take 500 mg today (day 1), then 250 mg for 4 days (days 2-5) benzonatate 100 mg capsule 100 mg PO TID PRN (Reason: cough) Qty: 20 0RF No Action magnesium 200 mg tablet 200 mg PO DAILY nufanijrgm-xpenzzzjocsrz-omwl [Fioricet] 50-300-40 mg capsule 1 cap PO Q6H PRN (Reason: pain) 5 Days Qty: 20 0RF Print Language: Uzbek Instructions: Upper Respiratory Infection (ED) Referrals: Physician,Non-Staff, MD [Primary Care Provider] - 1 week
[2024-08-18 07:34] LABS: SARS-CoV-2 Ag NEGATIVE (NEGATIVE)
== END 2024-08-18 09:05 | disposition home or self-care (01) ==
PROVIDERS: Emergency Provider Emergency Medicine
DX: R05.9 Cough, unspecified (principal); J06.9 Acute upper respiratory infection, unspecified
CPT/HCPCS: 71045; 87811; 99284